=== PATIENT | male | born 1950 | race Caucasian/White ===

== ENCOUNTER 2025-05-20 13:53 | Outpatient (OUT) | payer MEDICARE, OTHER, SELFPAY ==
--- NOTE | 2025-05-20 15:43 | P.CN_ITS ---
Consult Note: HPI Data of Consult Patient: new to practice Consult date: 05/20/25 Requesting Physician: Suzanne Zamorano MD Primary Care Provider: BERNICE MICHELLE DO Family Provider: BERNICE MICHELLE DO Consult Narrative Reason for consult: low back, left leg pain Narrative: 74yom who presents for evaluation. longstanding history of low back, left leg pain. previously had lumbar fusion in 2022, initially did well, now worsening pain. engages in frequent weekly chiropractic therapy, with mild benefit. uses tylenol, gabapentin, but does not like taking meds. denies adverse med side effects. cc:: CC: Suzanne Zamorano MD Review of Systems ROS Status of ROS 10 or more systems reviewed and unremark able except as noted in history and below Exam Narrative Exam Narrative: Psych-alert and oriented x 3. Attentive and appropriate, constitutionally normal, displays normal mood and affect per situation. There are no obvious deficits in memory, reasoning, or intellect.? Skin-no obvious rashes, bruising, erythema noted to the patient's area of pain.? Extremities- extremities are warm with minimal edema and palpable pulses. Lumbar-tenderness to palpation noted in the lumbar spine and paraspinal musculature. Pain is elicited with flexion, extension, and lateral rotation of the lumbar spine. Range of motion is diminished with these motions. Facet loading maneuvers are positive.? Strength-noted to be unremarkable with the exception of decreased strength rated at 4 out of 5 in left quadriceps femoris, anterior tibialis. Sensory-no notable sensory deficits in the bilateral lower extremities to touch or pinprick in all dermatomal distributions with the exception to decreased sensation to the left L4, 5 dermatomal distribution Coordination remains intact.? Gait remains non-antalgic. Assessment and Plan Assessment and Plan (1) Lumbar stenosis with neurogenic claudication: (2) Lumbar postlaminectomy syndrome: Plan 74yom who presents for evaluation. failed conservative measures, as noted. given previous surgery and exam findings, would like to update lumbar mri without contrast. he is in agreement. meds reviewed, no changes. follow up after imaging complete.
== END 2025-05-20 13:54 | disposition home or self-care (01) ==
PROVIDERS: Family Provider Internal Medicine; PCP Internal Medicine; Visit Provider Anesthesiology
DX: M48.062 Spinal stenosis, lumbar region with neurogenic claudication (principal); M96.1 Postlaminectomy syndrome, not elsewhere classified
CPT/HCPCS: G0463

== ENCOUNTER 2025-05-29 12:27 | Outpatient (OUT) | payer MEDICARE, SELFPAY ==
--- NOTE | 2025-05-29 12:31 | MR_ITS ---
[address] [address] Patient Name: TIGRE PISANO MRN: [id number] date: 1950 Sex: M Assigned Patient Location: MRI Current Patient Location: MRI Accession/Order Number: [id number] Exam Date: 05/29/2025 12:50 Report Date: 05/29/2025 20:24 At the request of: YASSINE WHIPPLE MD Procedure: MR lumbar spine wo con MR lumbar spine wo con 05/29/2025 1:57 PM SIGNS AND SYMPTOMS: ^Failed Back, Post Laminectomy PROTOCOL: Multiplanar multisequence MR images of the lumbar spine without IV contrast COMPARISON: 07/18/2023 FINDINGS: The bones of the lumbar spine are in anatomic alignment. There is preservation of vertebral body heights there is posterior and intervertebral fusion at L4-5. There is mild disc height loss at L5-S1. There is mild disc height loss at L5-S1. There is Schmorl's information the inferior endplate of L2. The marrow signal is within normal limits. The conus terminates at the mid L1 vertebral body level. No epidural or paraspinous fluid collection is appreciated. There is aneurysmal dilatation of the infrarenal abdominal aorta just above the bifurcation measuring up to 3.1 cm in greatest transverse dimension. At T12-L1: There is a normal disc, central canal, and neural foramen. At L1-L2: There is a normal disc, central canal, and neural foramen. At L2-L3: There is a broad-based disc bulge. There is facet hypertrophy with ligamentum flavum thickening. There is mild spinal canal stenosis with mild to moderate bilateral neural foraminal narrowing. At L3-L4: There is a circumferential disc bulge with facet hypertrophy and ligamentum flavum thickening. There is mild spinal canal stenosis with mild left and moderate right neural foraminal narrowing. At L4-L5: There is posterior and intervertebral fusion. There is facet hypertrophy. There is no significant spinal canal narrowing. There is moderate left and mild right neural foraminal narrowing. At L5-S1: There is a circumferential disc bulge with endplate osteophyte formation and facet hypertrophy. There is moderate left and severe right neural foraminal narrowing with mass effect on the exiting right L5 nerve roots. There is mild spinal canal narrowing. MR/MR lumbar spine wo con IMPRESSION: At L5-S1: There is a circumferential disc bulge with endplate osteophyte formation and facet hypertrophy. There is moderate left and severe right neural foraminal narrowing with mass effect on the exiting right L5 nerve roots. There is mild spinal canal narrowing. Lesser degrees of degenerative changes are noted as above. There is posterior and intervertebral fusion at L4-5. Impression dictated by: Nino Morrissey M.D. 05/29/2025 8:24 PM Dictation Location: [place] [address] Electronically authenticated by: [id number] Y Date: 05/29/2025 20:24
== END 2025-05-29 12:28 | disposition home or self-care (01) ==
LOC: MRI 12:27
PROVIDERS: Family Provider Internal Medicine; PCP Internal Medicine; Visit Provider Anesthesiology
DX: M96.1 Postlaminectomy syndrome, not elsewhere classified (principal); M51.369 Other intervertebral disc degeneration, lumbar region without mention of lumbar back pain or lower extremity pain; M43.26 Fusion of spine, lumbar region
CPT/HCPCS: 72148

== ENCOUNTER 2025-06-05 08:54 | Outpatient (OUT) | payer MEDICARE, SELFPAY ==
--- OUTSIDE RECORDS SUMMARY | 2025-05-31 08:01 | XMS_ITS | Encounter Summary ---
Author Organization [employer] Address [id number] [address] [place] [address] Care Team Providers Care Casual Shoe Inspector Name Role Phone Katie Galdamez DO, Charles L Primary Care Provider Reason for Referral * Diagnostic Imaging (Emergency) - Pending Review Specialty Diagnoses / Procedures Referred By Contac t Referred To Contact Radiology Diagnoses Pulmonary nodule Procedures [place] [address] [place] [address] Phone: tel: fax: Referral ID Status Reason Start Date Expiration Date V isits Requested Visits Authorized [id number] Pending Review 12/04/2024 12/04/2025 1 1 Reason for Visit * Diagnostic Imaging (Emergency) - Pending Review Specialty Diagnoses / Procedures Referred By German ramirez Referred To Contact Radiology Diagnoses Pulmonary nodule Procedures CT chest with contrast Elton Wilson Jr., DO [address] [place] [address] Phone: tel: fax: Referral ID Status Reason Start Date Expiration Date V isits Requested Visits Authorized [id number] Pending Review 12/04/2024 12/04/2025 1 1 Encounter Details Date Type Department Care Team (Latest Contact Info) Description 05/31/2025 8:01 AM EDT - 05/31/2025 11:59 PM EDT Hospital Encounter [facility] - CT Imaging [address] [place] [address] Pulmonary nodule Discharge Disposition: Home Social History Tobacco Use Types Packs/Day Years Used Date Smoking Tobacco: Former Cigarettes 0.3 39 1 971 - 2010 Smokeless Tobacco: Never Alcohol Use Standard Drinks/Week Comments Yes 0 (1 standard drink = 0.6 oz pur e alcohol) 2 beers 2 times per week Housing Instability Answer Date Recorde d Are you worried or concerned that in the next two months you may not have stable housing that you own, rent or stay in as a part of a household? No 02/04/2023 Childcare Answer Date Recorded Childcare Unknown 03/07/2019 Employment Answer Date Recorded Employment Unknown 03/07/2019 Hunger Screening Answer Date Recorded Within the past 12 months we worried whether our food would run out before we got money to buy more. Never True 03/07/2025 Within the past 12 months th e food we bought just didn't last and we didn't have money to get more. Never True 03/07/2025 Purpose - Life Answer Date Recorded Purpose and direction in life Unknown Sex and Gender Information Value Date Recorded Sex Assigned at Not on file Legal Sex Male 11:39 AM EDT Gender Identity Not on file Sexual Orientation Not on file documented as of this encounter Medications at Time of Discharge acetaminophen (TYLENOL EXTRA STRENGTH) 500 mg tablet Take 2 tablets (1,000 mg total) by mouth every 6 (six) hours. 30 tablet 3 aspirin 81 mg Take 1 tablet (81 mg total) by mouth in the morning. 3 atorvastatin (LIPITOR) 40 mg tabletIndications:Pure hypercholesterolemia Take 1 tablet (40 mg total) by mouth daily. 1 tablet 8 cholecalciferol, vitamin D3, 2,000 units tablet Take 1 tablet (2,000 Units total) by mouth in the morning. cyanocobalamin (vitamin B-12) 1000 MCG tablet Take 1 tablet (1,000 mcg total) by mouth in the morning. 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 90 tablet 1 5 magnesium 200 mg tablet Take by mouth in the morning. metoprolol tartrate (LOPRESSOR) 25 mg tablet Take 1 tablet (25 mg total) by mouth in the morning and 1 tablet (25 mg total) before bedtime. Last dose today 04/08/2021 . 180 tablet 3 2 MULTIVIT-MIN/FA/LYCOPEN/L UTEIN (CENTRUM SILVER MEN ORAL) in the evening. mv-mn/lutein/zeax/bilber/ hb277 (MACULAR HEALTH FORMULA ORAL) Take by mouth in the morning. NON FORMULARY Med Name: prostate health tab daily, and Juliocesar BID TURMERIC ORAL Take by mouth in the morning. vitamins A,C,P-sdvm-lmufym (IVITE PROTECT) 7,160 unit- 113 mg-100 unit tablet Take 1 tablet by mouth in the morning and 1 tablet before bedtime. Eye vitamins. documented as of this encounter Plan of Treatment Upcoming Encounters Date Type Department Care Team (Late st Contact Info) Description 07/05/2025 1:30 PM EDT Appointment [facility] [address] [facility] [place] [phone] Jessi Martinez, DO [address] [place] [address] 07/05/2025 2:15 PM EDT Appointment [facility] [address] [place] [address] Jessi Martinez, DO [address] [place] [address] 07/05/2025 3:15 PM EDT Appointment [facility] [address] [place] [address] Jessi Martinez, DO [address] [place] [address] 07/05/2025 3:45 PM EDT Appointment [facility] - [facility]ascular [address] [facility] [place] [phone] Jessi Martinez, DO [address] [place] [address] 07/15/2025 10:15 AM EDT Office Visit [facility] [address] [place] [address] Jessi Martinez, DO [address] [place] [address] documented as of this encounter Goals Goal Patient Goal Type Associated Problems Recent Progress Patient-Stated? Author <enter goal here> General Yes Edgardo Wright, RN Note: Evaluation of progress towards goal: Patient will discharge to inpatient rehab. - Edgardo Wright RN 02/03/23 1:07 PM documented as of this encounter Procedures Procedure Name Priority Date/Time Associated Diagnosis Comments CT CHEST W CONT Routine 05/31/2025 8:28 AM EDT Pulmonary nodule documented in this encounter Results * CT chest with contrast (05/31/2025 8:28 AM EDT) Anatomical Region Laterality Modality Body, Lung, Chest, Body Covera N/A C omputed Tomography 06/04/2025 9:18 AM EDT Narrative 06/04/2025 9:41 AM EDT History: Pulmonary nodule Exam/Technique: CT images of chest were obtained following intravenous contrast injection. CT does automated exposure control was utilized. All CT scans at this facility use dose modulation, iterative reconstruction, and/or weight based dosing when appropriate to reduce radiation dose to as low as reasonably achievable. Comparison: CT chest 11/28/2024 Findings: Neck base exam is grossly unremarkable. There are cardiac surgical changes with severe northway coronary artery calcifications. There is no significant cardiomegaly or pericardial effusion. There is no pathological lymphadenopathy by size criteria. There is interval improvement with near complete resolution of the multiple bilateral nodular opacities. The opacity along the right minor fissure demonstrates interval decrease in thickness and in density. It currently measures 2.4 mm in thickness compared to prior measurements of 4.7 mm. This is likely sequelae of atelectasis. Pulmonary nodule : 2.5 mm left upper lobe nodule axial image #55 compared to prior measurement of 6 mm. 3 mm left lower lobe nodule axial image #62 compared to prior measurements of 7 mm. 4 mm right lower lobe central nodular opacity, axial image #88 compared to prior measurement of 9 mm. 4 mm left lower lobe pulmonary nodule axial image #87 compared to prior 6 mm. 8 mm right lower lobe cavitary nodule axial image #95 is essentially stable. There is interval development of new left lower lobe 8 mm pulmonary nodule axial image #100 and coronal image #89. There are groundglass opacities throughout both lungs. Those could be sequelae of inflammatory or infectious process. There are coarse anterior bridging osteophytes throughout the entire dorsal spine likely discharge with no gross acute osseous injury. IMPRESSION: Most of the bilateral pulmonary nodules demonstrate significant decrease in size and density. However, there is new spiculated nodular opacity at the left lower lobe that measures 8 mm. This could represent subsegmental atelectasis. Short-term follow- up in 3 months is advised. There are scattered groundglass opacities throughout both lungs possibly due to subsegmental atelectasis versus inflammatory or infectious etiology. Finalized by Rosalina Barillas MD on 06/04/2025 9:41 AM Procedure Note Rosalina Barillas MD - 06/04/2025 History: Pulmonary nodule Exam/Technique: CT images of chest were obtained following intravenous contrast injection.CT does automated exposure control was utilized. All CT scans at [facility] use dose modulation, iterative reconstruction, and/or weightbased dosing when appropriate to reduce radiation dose to as low asreasonably achievable. Comparison: CT chest 11/28/2024 Findings: Neck base exam is grossly unremarkable. There are cardiac surgical changes with severe northway coronary arterycalcifications. There is no significant cardiomegaly or pericardialeffusion. There is no pathological lymphadenopathy by size criteria. There is interval improvement with near complete resolution of themultiple bilateral nodular opacities. The opacity along the right minor fissure demonstrates interval decreasein thickness and in density. It currently measures 2.4 mm in thicknesscompared to prior measurements of 4.7 mm. This is likely sequelae ofatelectasis. Pulmonary nodule : 2.5 mm left upper lobe nodule axial image #55 compared to priormeasurement of 6 mm. 3 mm left lower lobe nodule axial image #62 compared to prior measurementsof 7 mm. 4 mm right lower lobe central nodular opacity, axial image #88 compared toprior measurement of 9 mm. 4 mm left lower lobe pulmonary nodule axial image #87 compared to prior 6mm. 8 mm right lower lobe cavitary nodule axial image #95 is essentiallystable. There is interval development of new left lower lobe 8 mm pulmonary noduleaxial image #100 and coronal image #89. There are groundglass opacities throughout both lungs. Those could besequelae of inflammatory or infectious process. There are coarse anterior bridging osteophytes throughout the entiredorsal spine likely discharge with no gross acute osseous injury. IMPRESSION: Most of the bilateral pulmonary nodules demonstrate significant decreasein size and density. However, there is new spiculated nodular opacity atthe left lower lobe that measures 8 mm. This could represent subsegmentalatelectasis. Short-term follow- up in 3 months is advised. There are scattered groundglass opacities throughout both lungs possiblydue to subsegmental atelectasis versus inflammatory or infectiousetiology. Finalized by Rosalina Barillas MD on 06/04/2025 9:41 AM Elton Wilson Jr., DO IM CT ORDERABLES Final Result documented in this encounter Visit Diagnoses Diagnosis Pulmonary nodule Other diseases of lung, not elsewhere classified documented in this encounter Administered Medications Inactive Administered Medications - up to 3 most recent administrations Medication Order MAR Action Action Date Dose Rate Site iohexoL (OMNIPAQUE) 300 mg iodine/mL 100 mL 100 mL, intravenous, Once in imaging, contrast, Starting on Tue05/31/25 at 0804, For 1 dose, VESICANT (RED) Given 05/31/2025 8:30 AM EDT 70 mL sodium chloride 0.9 % flush 10 mL 10 mL, intravenous, As needed, line care, Starting on Tue05/31/25 at 0804 Given 05/31/2025 8:29 AM EDT 10 mL sodium chloride 0.9 % radiology injection 80 mL, intravenous, Once in imaging, pre/post contrast, Starting on Tue05/31/25 at 0804, For 1 dose Given 05/31/2025 8:30 AM EDT 80 mL documented in this encounter Care Teams Casual Shoe Inspector Relationship Specialty Start Date End Date Elton Wilson Jr., [address] [place] [address] PCP - General Internal Medicine 09/26/17 documented as of this encounter
--- OUTSIDE RECORDS SUMMARY | 2025-06-05 08:56 | XMS_ITS | Encounter Summary ---
Demographics Address [address] [place] [address] Mobile Phone Email Address Preferred Language Croatian Marital Status Significant Other Congregation Affiliation Unknown Race White Ethnic Group Not or Lati no Author Organization [employer] Address [facility] [id number] [address] [place] [address] Care Team Providers Care Oscillograph Technician Name Role Phone Katie Galdamez DO, Charles L Primary Care Provider Encounter Details Date Type Department Care Team (Late st Contact Info) Description 03/23[facility]2021 [facility] [address] [place] [phone] Dora Garcia RN Social History Tobacco Use Types Packs/Day Years Used Date Smoking Tobacco: Former Smokeless Tobacco: Never Alcohol Use Standard Drinks/Week Comments Yes 0 (1 standard drink = 0.6 oz pur e alcohol) Childcare Answer Date Recorded Childcare Unknown 03/07/2019 Employment Answer Date Recorded Employment Unknown 03/07/2019 Purpose - Life Answer Date Recorded Purpose and direction in life Unknown Sex and Gender Information Value Date Recorded Sex Assigned at Not on file Legal Sex Male 11:39 AM EDT Gender Identity Not on file Sexual Orientation Not on file COVID-19 Exposure Response Date Recorded In the last month, have you been in contact with someone who was confirmed or suspected to have Coronavirus / COVID-19? No / Unsure 03/26/2021 12:38 PM EDT documented as of this encounter Miscellaneous Notes * Telephone Encounter - Dora Garcia RN - 03/23/2021 11:16 AM EDT Spoke with pt-eager to start cardiac rehab-Maryanne in rehab notified- documented in this encounter Plan of Treatment Upcoming Encounters Date Type Department Care Team (Late st Contact Info) Description 07/05/2025 1:30 PM EDT Appointment [facility] [address] [place] [address] Jessi Martinez, DO [address] [facility] [address] [place] [address] 07/05/2025 2:15 PM EDT Appointment [facility] [address] [place] [address] Jessi Martinez, DO [address] [facility] [address] [place] [address] 07/05/2025 3:15 PM EDT Appointment [facility] [address] [place] [facility] [place] [place] [address] Jessi Martinez, DO [address] [facility] [address] [place] [address] 07/05/2025 3:45 PM EDT Appointment [facility] [address] [place] [facility] [place] [address] Jessi Martinez, DO [address] [facility] [address] [place] [address] 07/15/2025 10:15 AM EDT Office Visit [facility] [address] [facility] [address] Jessi Martinez, DO [address] [facility] [address] [place] [address] documented as of this encounter Visit Diagnoses Not on filedocumented in this encounter Care Teams Oscillograph Technician Relationship Specialty Start Date End Date Elton Wilson Jr., [facility] [place] [address] PCP - General Internal Medicine 09/26/17 documented as of this encounter
--- OUTSIDE RECORDS SUMMARY | 2025-06-05 08:56 | XMS_ITS | Clinical Summary ---
Demographics Address [address] [place] [address] Mobile Phone Email Address Preferred Language Croatian Marital Status Significant Other Yarsani Affiliation Unknown Race White Ethnic Group Not or Lati no Author Organization [employer] tem Address [id number] [address] [place] [address] Care Team Providers Care Health Education Aide Name Role Phone Katie Galdamez DO, Charles L Primary Care Provider Allergies Active Allergy Reactions Criticality Noted Date Comments Ciprofloxacin 07/30/2024 Fluoroquinolones antibiotics associated with potential increased risk for aortic aneurysm/dissection progression. Patient with known history of AAA should attempt to avoid fluoroquinolones if possible. For this reason FQ listed under patient allergies. However, this is not a true allergy or contraindication and FQ can be used if risk of infection and/or need for FQ use felt to be greater than potential risk of aneurysmal progression. 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 Active vitamins A,C,H-vdjj-zgpdwj (IVITE PROTECT) 7,160 unit- 113 mg-100 unit tablet Take 1 tablet by mouth in the morning and 1 tablet before bedtime. Eye vitamins. Active atorvastatin (LIPITOR) 40 mg tabletIndications:Pure hypercholesterolemia Take 1 tablet (40 mg total) by mouth daily. 1 tablet 018 Active Additional Information Patient taking differently: 20 mgoral Daily, Morning, Reported on 03/07/2025 cholecalciferol, vitamin D3, 2,000 units tablet Take 1 tablet (2,000 Units total) by mouth in the morning. Active metoprolol tartrate (LOPRESSOR) 25 mg tablet Take 1 tablet (25 mg total) by mouth in the morning and 1 tablet (25 mg total) before bedtime. Last dose today 04/08/2021 . 180 tablet 3 022 Active Additional Information Patient taking differently: 12.5 mgoral 2 times daily, Morning, Bedtime, Last dose today 04/08/2021 , Reported on 03/07/2025 NON FORMULARY Med Name: prostate health tab daily, and Juliocesar BID Active aspirin 81 mg Take 1 tablet (81 mg total) by mouth in the morning. 023 Active acetaminophen (TYLENOL EXTRA STRENGTH) 500 mg tablet Take 2 tablets (1,000 mg total) by mouth every 6 (six) hours. 30 tablet 023 Active TURMERIC ORAL Take by mouth in the morning. Active cyanocobalamin (vitamin B-12) 1000 MCG tablet Take 1 tablet (1,000 mcg total) by mouth in the morning. Active mv-mn/lutein/zeax/bilbe r/hb277 (MACULAR HEALTH FORMULA ORAL) Take by mouth in the morning. Active magnesium 200 mg tablet Take by mouth in the morning. Active ezetimibe (ZETIA) 10 mg tabletIndications:Hyper triglyceridemia,Pure hypercholesterolemia,Hi story of coronary artery bypass graft x 3 Take 1 tablet (10 mg total) by mouth in the morning. 90 tablet 1 025 Active Active Problems Problem Noted Date Diagnosed Date Lumbar stenosis 02/02/2023 History of coronary artery bypass graft x 3 01/2023 Essential hypertension 01/28/2023 History of hyperlipidemia 01/28/2023 Abdominal aortic aneurysm (AAA) without rupture 06/04/2022 Overview (06/04/2022): Added automatically from request for surgery [id number] Lumbosacral spondylosis without myelopathy 04/29 Overview (04/29/2022): Added automatically from request for surgery [id number] Spinal stenosis of lumbar re gion with neurogenic claudication 03/30/2022 Overview (03/30/2022): Added automatically from request for surgery [id number] Pericardial effusion 03/26/2021 Paroxysmal atrial fibrillation 03/04/2021 Overview (08/07/2021): Postop CABG Presence of aortocoronary bypass graft Hypertensive heart disease without heart failure 02/27/2021 Personal history of sudden cardiac arrest 2020 Unstable angina 02/22/2021 Pulseless electrical activity 02/22/2021 Overview (02/25/2021): Added automatically from request for surgery [id number] Pure hypercholesterolemia 05/23/2018 Coronary artery disease invo lving nez perce coronary artery of nez perce heart 10/04/2016 Presence of coronary angioplasty implant and gra ft 09/26/1989 Cough Resolved Problems Problem Noted Date Diagnosed Date Resolved Date terminal system operator (current) use of anticoagulants 03/04/2021 07/16/2021 Hypertension 05/30/2019 06/30/2020 Combined hyperlipidemia 07/10/201504/27 Encounters Date Type Department Care Team Description 05/31/2025 8:01 AM EDT - 05/31/2025 11:59 PM EDT Hospital Encounter [facility] [address] [place] [address] Pulmonary nodule Discharge Disposition: Home 05/31/2025 Travel 05/28/2025 Travel 05/24/2025 Travel 05/13/2025 Travel 04/30/2025 Refill [facility] [address] [place] [id number] Winter Cardenas, GIOVANNI Med Refill 03/27/2025 Travel 03/07/2025 12:30 PM EDT Office Visit [facility] [address] [place] [phone] Jack Wilkerson MD History of coronary artery bypass graft x 3 (Primary Dx); Abnormal electrocardiogram (ECG) (EKG) 03/06/2025 Telephone [facility] [address] [place] [address] Sandra Steinberg, ESTEVAN 03/05/2025 Travel from Last 3 Months Immunizations Immunization Administration Dates Next Due Immune Globulin, Intramuscular 06/21/2020,2019 Influenza Vaccine, Quadrivalent, Adjuvanted 05/28 Influenza, Injectable, Mdck, Preservative Free, Quad 07/25/2017 Influenza, Injectable, quadrivalent (PF) 019,07/10/2018 Tdap 05/04/2015 Family History Medical History Relation Name Comments Heart disease Brother 1 No Known Problems Brother 2 Heart disease Father No Known Problems Mother No Known Problems Sister 1 No Known Problems Sister 2 No Known Problems Sister 3 No Known Problems Sister 5 Anesthesia problems Neg Hx Bleeding Disorder Neg Hx Clotting disorder Neg Hx Colon cancer Neg Hx Diabetes Neg Hx Prostate cancer Neg Hx Stroke Neg Hx Relation Name Status Comments Brother 1 Alive Brother 2 Alive Father Maternal Grandfather Maternal Grandmother Mother Paternal Grandfather Paternal Grandmother Sister 1 Sister 2 Alive Sister 3 Alive Sister 4 Alive Sister 5 Alive Social History Tobacco Use Types Packs/Day Years Used Date Smoking Tobacco: Former Cigarettes 0.3 39 1 971 - 2010 Smokeless Tobacco: Never Tobacco Cessation:Counseling Given: Not Answered Alcohol Use Standard Drinks/Week Comments Yes 0 [...] on file Sexual Orientation Not on file Last Filed Vital Signs Vital Sign Reading Time Taken Comments Blood Pressure 124/80 03/07/2025 12:15 PM EDT Pulse 72 03/07/2025 12:15 PM EDT Temperature 36.4 C (97.5 F) 02/04/2023 7:39 AM EDT Respiratory Rate 18 02/04/2023 11:37 AM EDT Oxygen Saturation 98% 03/07/2025 12:15 PM EDT Inhaled Oxygen Concentration - - Weight 101.2 kg (223 lb) 03/07/2025 12:15 PM EDT Height 188 cm (6' 2 ) 03/07/2025 12:15 PM EDT Body Mass Index 28.63 03/07/2025 12:15 PM EDT Plan of Treatment Upcoming Encounters Date Type Department Care Team (Late st Contact Info) Description 07/05/2025 1:30 PM EDT Appointment [facility] [address] [place] [address] Jessi Martinez, DO [address] [facility] [employer] [address] [place] [address] 07/05/2025 2:15 PM EDT Appointment [facility] [address] [place] [address] Jessi Martinez, DO [address] [facility] [address] [place] [address] 07/05/2025 3:15 PM EDT Appointment [facility] [address] [place] [address] Jessi Martinez, DO [address] [facility] [address] [place] [address] 07/05/2025 3:45 PM EDT Appointment [facility] [address] [place] [address] Jessi Martinez, DO [address] [facility] [address] [place] [address] 07/15/2025 10:15 AM EDT Office Visit [facility] [place] [address] Jessi Martinez, DO [address] [facility] [address] [place] [address] Health Maintenance Due Date Last Done Comments Statin Use: Cardiovascular 1950 Depression Screening 1962 Adult BMI Follow Up Plan 1968 Zoster (Shingles) Vaccine (1 of 2) 2000 Fall Risk Screening 12/28/2015 DTaP,Tdap and Td Vaccines (2 - Td or Tdap) 05/04/2025 05/04/2015 COVID-19 Vaccine (3 - 2024-2 6 season) 2025 07/04/2023, 07/01/2021 Influenza Vaccine 05/27/2025 09/14/2024, , 08/31/2022, Additional history exists Adult BMI Screening 03/07/2026 03/07/2025 Tobacco Screening 05/31/2026 05/31/2025 Abdominal Aortic Aneurysm (A AA) Screen Completed 09/17/2024, 07/19/2024, 07/19/2024, Additional history exists Goals Goal Patient Goal Type Associated Problems Recent Progress Patient-Stated? Author <enter goal here> General Yes Edgardo Wright, GIOVANNI Note: Evaluation of progress towards goal: Patient will discharge to inpatient rehab. - Edgardo Wright RN 02/03/23 1:07 PM Medical Devices Implanted Type Area Fruit Press Operator Device Identifier Shelf Expiration Date Model / Serial / Lot Graft Evas 12cm 12mm 10-11mm Xcldr Cntrlt Lg Eptfe [facility] Rpl [id number] - [id number] - [id number] Implanted:Qty: 1 on 06/14/2022 by Benoit Almendarez MD at [facility] Graft Left: Arterial [place] 02/02/2025 [id number] / [id number] / Description:LEFT ILIAC ARTER Y Graft Evas 9.5cm 18mm 14.5-16.5mm [place] Xcldr Cntrlt Lg Eptfe - [id number] - [id number] Implanted:Qty: 1 on 06/14/2022 by Benoit Almendarez MD at [facility] Graft Right: Arterial [place] 11/16/2024 [id number] / [id number] / Description:RIGHT ILIAC UMESH RY Spacer Implanted:Qty: 1 on 02/02/2023 by Andrew Bravo MD at [facility] Other Implant N/A: Spine Lumbar [employer] [facility] 09/16/2028 [id number] / / [id number] Spacer Implanted:Qty: 1 on 02/02/2023 by Andrew Bravo MD at [facility] Other Implant N/A: Spine Lumbar [employer] [facility] 09/16/2028 [id number] / / [id number] Reggie Spnl Cd Hzn Solera 45mm 4.75mm Preb Cocrmo Crv Ns Solera - [id number] Implanted:Qty: 2 on 02/02/2023 by Anderw Bravo MD at [facility] Reggie N/A: Spine Lumbar use MDTR SPIN [id number] / / Screw Bn 50mm 7.5mm Ma Lp 2 Ld Clr Cd Spne Ti Cocr Cd Hzn - [id number] Implanted:Qty: 4 on 02/02/2023 by Andrew Bravo MD at [facility] Screw N/A: Spine Lumbar use MDTR SPIN [id number] / / Screw Set Ti Spne Brk Off Cd Hzn Ns 4.75 Mm Reggie - [id number] Implanted:Qty: 4 on 02/02/2023 by Andrew Bravo MD at [facility] Screw N/A: Spine Lumbar use MDTR SPIN [id number] / / Chest Wires [place] Excluder Aaa Endoprothesis Implanted:Qty: 1 on 06/14/2022 by Benoit Almendarez MD at [facility] N/A: Aorta [place] 03/06/2025 [id number] / [id number] / Description:AORTA Procedures Procedure Name Priority Date/Time Associated Diagnosis Comments CT CHEST W CONT Routine 05/31/2025 8:28 AM EDT Pulmonary nodule POCT EKG Routine 03/07/2025 History of coronary artery bypass graft x 3 from Last 3 Months Results * CT chest with contrast (05/31/2025 [...] There are cardiac surgical changes with severe nez perce coronary artery calcifications. There is no significant [...] control was utilized. All CT scans at [facility] use dose modulation, iterative reconstruction, and/or weightbased dosing when appropriate to reduce radiation dose to as low asreasonably achievable. Comparison: CT chest 11/28/2024 Findings: Neck base exam is grossly unremarkable. There are cardiac surgical changes with severe nez perce coronary arterycalcifications. There is no significant cardiomegaly [...] Rosalina Barillas MD on 06/04/2025 9:41 AM us Elton Wilsno Jr., DO IMG CT ORDERABLES Final Result * POCT EKG (03/07/2025) 03/07/2025 us Jack Wilkerson MD ECG ORDERABLES Final Result MANUALLY TRANSCRIBED RESULTS from Last 3 Months Insurance * Guarantor: Saurabh Jerome Account Type Relation to Patient Date of Phone Billing Address Personal/Family Self 1950 [address] [place] [address] [facility] OPTUM Advance Directives * Full Code (Latest Code Status on File) Date Activated Date Inactivated Comments 02/02/2023 6:19 PM 02/04/2023 3:32 PM * Full Code Date Activated Date Inactivated Comments 02/22/2021 12:35 PM 03/04/2021 7:07 PM Care Teams Health Education Aide Relationship Specialty Start Date End Date Elton Wilson Jr., [address] [place] [address] PCP - General Internal Medicine 09/26/17
--- OUTSIDE RECORDS SUMMARY | 2025-06-05 08:56 | XMS_ITS | Encounter Summary ---
Demographics Address [address] [place] [address] Mobile Phone Email Address Preferred Language Ukrainian Marital Status Significant Other Gnosticist Affiliation Unknown Race White Ethnic Group Not or Lati no Author Organization [employer] tem Address [id number] [address] [place] [address] Care Team Providers Care Shake Out Worker Name Role Phone Katie Galdamez DO, Charles L Primary Care Provider Encounter Details Date Type Department Care Team (Latest Contact Info) Description 05/28/2025 Travel Social History Tobacco Use Types Packs/Day Years [...] on file documented as of this encounter Plan of Treatment Upcoming Encounters Date Type Department Care Team (Late st Contact Info) Description 07/05/2025 1:30 PM EDT Appointment [facility] [address] [facility] [address] Jessi Martinez, DO [address] [facility] [address] [place] [address] 07/05/2025 2:15 PM EDT Appointment [facility] [address] [place] [address] Jessi Martinez, DO [address] [facility] [address] [place] [address] 07/05/2025 3:15 PM EDT Appointment [facility] [address] [place] [address] Jessi Martinez, DO [address] [facility] [address] [place] [address] 07/05/2025 3:45 PM EDT Appointment [facility] [address] [place] [address] Jessi Martinez, DO [address] [facility] [address] [place] [address] 07/15/2025 10:15 AM EDT Office Visit [facility] [address] [facility] [place] [address] Jessi Martinez, DO [address] [facility] [address] [place] [address] documented as of this encounter Goals Goal Patient Goal Type Associated Problems Recent Progress Patient-Stated? Author <enter goal here> General Yes Edgardo Wright, RN Note: Evaluation of progress towards goal: Patient will discharge to inpatient rehab. - Edgardo Wright RN 02/03/23 1:07 PM documented as of this encounter Visit Diagnoses Not on filedocumented in this encounter Care Teams Shake Out Worker Relationship Specialty Start Date End Date Elton Wilson Jr., DO [address] [place] [address] PCP - General Internal Medicine 09/26/17 documented as of this encounter
--- OUTSIDE RECORDS SUMMARY | 2025-06-05 08:56 | XMS_ITS | Encounter Summary ---
Demographics Address [address] [place] [address] Mobile Phone Email Address Preferred Language Estonian Marital Status Significant Other Spiritism Affiliation Unknown Race White Ethnic Group Not or Lati no Author Organization [employer] tem Address [id number] [address] [place] [address] Care Team Providers Care Plasterer Helper Name Role Phone Katie Galdamez DO, Charles L Primary Care Provider Encounter Details Date Type Department Care Team (Latest Contact Info) Description 05/31/2025 Travel Social History Tobacco Use Types Packs/Day [...] Info) Description 07/05/2025 1:30 PM EDT Appointment [facility] [address] [place] [address] Jessi Martinez, DO [address] [facility] [address] [place] [address] 07/05/2025 2:15 PM EDT Appointment [facility] [address] [place] [address] Jessi Martinez, DO [address] [facility] [address] [place] [address] 07/05/2025 3:15 PM EDT Appointment [facility] [address] [place] [address] Jessi Martinez, DO [address] [facility] [address] [place] [address] 07/05/2025 3:45 PM EDT Appointment [facility] [address] [place] [address] Jessi Martinez, DO [address] [facility] [address] [place] [address] 07/15/2025 10:15 AM EDT Office Visit [facility] [address] [place] [address] Jessi Martinez, DO [address] [facility] [address] [place] [address] documented as of this encounter Goals Goal Patient Goal Type Associated Problems Recent Progress Patient-Stated? Author <enter goal here> General Yes Edgardo Wright, RN Note: Evaluation of progress towards goal: Patient will discharge to inpatient rehab. - Edgardo Wright RN 02/03/23 1:07 PM documented as of this encounter Visit Diagnoses Not on filedocumented in this encounter Care Teams Plasterer Helper Relationship Specialty Start Date End Date Elton Wilson Jr., DO [address] [place] [address] PCP - General Internal Medicine 09/26/17 documented as of this encounter
--- OUTSIDE RECORDS SUMMARY | 2025-06-05 08:56 | XMS_ITS | Encounter Summary ---
Demographics Address [address] [place] [address] Mobile Phone Email Address Preferred Language Nepalese Marital Status Significant Other Confucianist Affiliation Unknown Race White Ethnic Group Not or Lati no Author Organization [facility] [employer] tem Address [id number] [address] [place] [address] Care Team Providers Care Boom Stick Man Name Role Phone Katie Galdamez DO, Charles L Primary Care Provider Encounter Details Date Type Department Care Team (Late st Contact Info) Description 11/07/2023 Orders Only [facility] [address] [place] [address] Sandra Hensley MA Essential hypertension Social History Tobacco Use Types Packs/Day Years [...] got money to buy more. Never True 07/04/2023 Within the past 12 months th e food we bought just didn't last and we didn't have money to get more. Never True 07/04/2023 Purpose - Life Answer Date Recorded Purpose [...] Info) Description 07/05/2025 1:30 PM EDT Appointment [facility] [address] [place] [address] Jessi Martinez, DO [address] [employer] [address] [place] [address] 07/05/2025 2:15 PM EDT Appointment [facility] [address] [place] [address] Jessi Martinez, DO [address] [facility] [address] [place] [address] 07/05/2025 3:15 PM EDT Appointment [facility] [address] [place] [address] Jessi Martinez, DO [address] [facility] [address] [place] [address] 07/05/2025 3:45 PM EDT Appointment [facility] [address] [place] [address] Jessi Martinez, DO [address] [facility] [address] [place] [address] 07/15/2025 10:15 AM EDT Office Visit [facility] [place] [address] Jessi Martinez, DO [address] [facility] [address] [place] [address] documented as of this encounter Goals Goal Patient Goal Type Associated Problems Recent Progress Patient-Stated? Author <enter goal here> General Yes Edgardo Wright, RN Note: Evaluation of progress towards goal: Patient will discharge to inpatient rehab. - Edgardo Wright RN 02/03/23 1:07 PM documented as of this encounter Procedures Procedure Name Priority Date/Time Associated Diagnosis Comments LIPID PROFILE Routine 10/18/2023 Essential hypertension documented in this encounter Results * Lipid panel (10/18/2023) External Cholesterol 171 SUNQUEST External Hdl Cholesterol 68 SUNQUEST External Ldl (Calc) 83 SUNQUEST External Triglycerides 100 SUNQUEST 10/18/2023 us Iron Arroyo MD LAB BLOOD ORDERABLES Final Re sult SUNQUEST documented in this encounter Visit Diagnoses Diagnosis Essential hypertension Unspecified essential hypertension documented in this encounter Care Teams Boom Stick Man Relationship Specialty Start Date End Date Elton Wilson Jr., [address] [place] [address] PCP - General Internal Medicine 09/26/17 documented as of this encounter
--- OUTSIDE RECORDS SUMMARY | 2025-06-05 08:57 | XMS_ITS | Encounter Summary ---
Demographics Address [address] [place] [address] Mobile Phone Email Address Preferred Language Guatemalan Marital Status Significant Other Orthodox Affiliation Unknown Race White Ethnic Group Not or Lati no Author Organization [employer] tem Address [id number] [address] [place] [address] Care Team Providers Care Weigher Alloy Name Role Phone Katie Galdamez DO, Charles L Primary Care Provider Encounter Details Date Type Department Care Team (Latest Contact Info) Description 05/24/2025 Travel Social History Tobacco Use Types Packs/Day [...] Info) Description 07/05/2025 1:30 PM EDT Appointment [facility] [address] [facility] [address] Jessi Martinez, DO [address] [facility] [address] [place] [address] 07/05/2025 2:15 PM EDT Appointment [facility] [address] [facility] [place] [address] Jessi Martinez, DO [address] [facility] [address] [place] [address] 07/05/2025 3:15 PM EDT Appointment [facility] [address] [facility] [place] [address] Jessi Martinez, DO [address] [facility] [address] [place] [address] 07/05/2025 3:45 PM EDT Appointment [facility] [address] [facility] [place] [address] Jessi Martinez, DO [address] [facility] [address] [place] [address] 07/15/2025 10:15 AM EDT Office Visit [facility] [address] [place] [address] Jessi Martinez, DO [address] [facility] [address] [place] [address] documented as of this encounter Goals Goal Patient Goal Type Associated Problems Recent Progress Patient-Stated? Author <enter goal here> General Yes Edgardo Wright, RN Note: Evaluation of progress towards goal: Patient will discharge to inpatient rehab. - Edgardo Wright RN 02/03/23 1:07 PM documented as of this encounter Visit Diagnoses Not on filedocumented in this encounter Care Teams Weigher Alloy Relationship Specialty Start Date End Date Elton Wilson Jr., DO [address] [place] [address] PCP - General Internal Medicine 09/26/17 documented as of this encounter
--- OUTSIDE RECORDS SUMMARY | 2025-06-05 08:57 | XMS_ITS | Encounter Summary ---
Demographics Address [address] [place] [address] Mobile Phone Email Address Preferred Language Botswanan Marital Status Significant Other Taoist Affiliation Unknown Race White Ethnic Group Not or Lati no Author Organization [facility] Sys tem Address [facility] [id number] [address] [facility] [place] [address] Care Team Providers Care Welder Railcar Mechanic Name Role Phone Katie Galdamez DO, Charles L Primary Care Provider Reason for Visit * Reason Onset Date Comments Status Post Cath 02/26/2021 Encounter Details Date Type Department Care Team (Late st Contact Info) Description 02/26/2021 Telephone [facility] [address] [address] Melanie Hammond MD [address] [address] Status Post Cath Social History Tobacco Use Types Packs/Day Years Used Date Smoking Tobacco: Former Smokeless Tobacco: Never Alcohol Use Standard Drinks/Week Comments No 0 (1 standard drink = 0.6 oz [...] have Coronavirus / COVID-19? No / Unsure 02/27/2021 11:46 AM EDT documented as of this encounter Miscellaneous Notes * Telephone Encounter - Shira Lujan - 02/26/2021 11:31 AM EDT Per message from 02/25/2021 procedure list: Pt had cath w/ MAS @ [facility] where pt is currently admitted. Will need f/u in office 1-2wks after d/c //keb * Telephone Encounter - Alisha Winter - 02/26/2021 11:31 AM EDT PT STILL ADMITTED * Telephone Encounter - Alisha Winter - 02/26/2021 11:31 AM EDT Still admitted * Telephone Encounter - Alisha Winter - 02/26/2021 11:31 AM EDT Still admitted * Telephone Encounter - Alisha Winter - 02/26/2021 11:31 AM EDT STILL ADMITTED documented in this encounter Plan of Treatment Upcoming Encounters Date Type Department Care Team (Late st Contact Info) Description 07/05/2025 1:30 PM EDT Appointment [facility] [address] [place] [address] [place] [address] [place] [address] [place] [address] 07/05/2025 2:15 PM EDT Appointment [facility] [address] [place] [address] Jessi Martinez, DO [address] [facility] [address] [place] [address] 07/05/2025 3:15 PM EDT Appointment [facility] - [facility] [address] [place] [address] Jessi Martinez, DO [address] [facility] [address] [place] [address] 07/05/2025 3:45 PM EDT Appointment [facility] [address] [place] [address] Jessi Martinez, DO [address] [facility] [address] [place] [address] 07/15/2025 10:15 AM EDT Office Visit [facility] [address] [place] [address] Jessi Martinez, DO [address] [facility] [address] [place] [address] documented as of this encounter Visit Diagnoses Not on filedocumented in this encounter Care Teams Welder Railcar Mechanic Relationship Specialty Start Date End Date Elton Wilson Jr., DO [address] [place] [address] [phone] PCP - General Internal Medicine 09/26/17 documented as of this encounter
--- OUTSIDE RECORDS SUMMARY | 2025-06-05 08:57 | XMS_ITS | Encounter Summary ---
Demographics Address [address] [place] [address] Mobile Phone Email Address Preferred Language Turkish Marital Status Significant Other Baptist Affiliation Unknown Race White Ethnic Group Not or Lati no Author Organization [facility] [employer] Sys tem Address [id number] [address] [facility] [place] [address] Care Team Providers Care Lumber Tallier Name Role Phone Katie Galdamez DO, Charles L Primary Care Provider Encounter Details Date Type Department Care Team (Late st Contact Info) Description 09/05/2024 Telephone [facility] [address] [place] [address] Marli Burns LPN Social History Tobacco Use Types Packs/Day Years [...] on file documented as of this encounter Miscellaneous Notes * Telephone Encounter - Laila Recinos - 09/05/2024 8:35 AM EST Patient called this am and he is concern about his Ct Scan which his [facility] Physician read to him and he stated that some findings was discover on his scan which he did npt understand he had this testingon 07/31/2024 he can be reached at [phone] * Telephone Encounter - Marli Burns LPN - 09/05/2024 8:35 AM EST Made pt an appt to come to the office to discuss test results. Patient satisfied documented in this encounter Plan of Treatment Upcoming Encounters Date Type Department Care Team (Late st Contact Info) Description 07/05/2025 1:30 PM EDT Appointment [facility] [address] [facility] [place] [address] Jessi Martinez, DO [address] [place] [address] 07/05/2025 2:15 PM EDT Appointment [facility] [address] [place] [place] [address] Jessi Martinez, DO [address] [place] [address] 07/05/2025 3:15 PM EDT Appointment [facility] [address] [place] [address] Jessi Martinez, DO [address] [place] [address] 07/05/2025 3:45 PM EDT Appointment [facility] - Vascular [address] [place] [address] Jessi Martinez, DO [address] [place] [address] 07/15/2025 10:15 AM EDT Office Visit [facility] [address] [place] [address] Jessi Martinez, DO [address] [place] [address] documented as of this encounter Goals Goal Patient Goal Type Associated Problems Recent Progress Patient-Stated? Author <enter goal here> General Yes Edgardo Wright, RN Note: Evaluation of progress towards goal: Patient will discharge to inpatient rehab. - Edgardo Wright, GIOVANNI 02/03/23 1:07 PM documented as of this encounter Visit Diagnoses Not on filedocumented in this encounter Care Teams Lumber Tallier Relationship Specialty Start Date End Date Elton Wilson Jr., [address] [place] [address] [phone] PCP - General Internal Medicine 09/26/17 documented as of this encounter
--- OUTSIDE RECORDS SUMMARY | 2025-06-05 08:57 | XMS_ITS | Encounter Summary ---
Demographics Address [address] [place] [address] Mobile Phone Email Address Preferred Language Dutch Marital Status Significant Other Christianity Affiliation Unknown Race White Ethnic Group Not or Lati no Author Organization [facility] Sys tem Address [facility] [id number] [address] [place] [address] Care Team Providers Care Office Manager Receptionist Name Role Phone Katie Galdamez DO, Charles L Primary Care Provider Encounter Details Date Type Department Care Team (Latest Contact Info) Description 01/31/2023 Orders Only [facility] [address] [place] [address] Cherry Bacon RN Pure hypercholesterolemia (Primary Dx) Social History Tobacco Use Types Packs/Day Years [...] have Coronavirus / COVID-19? No / Unsure 01/03/2023 12:50 PM EDT documented as of this encounter Mental Status * Question Answer Entry Date Author Overall Cognitive Status WFL 02/03/2023 10:37 AM EDT Wilber Gallardo, PT documented in this encounter Plan of Treatment Upcoming Encounters Date Type Department Care Team (Late st Contact Info) Description 07/05/2025 1:30 PM EDT Appointment [facility] [address] [facility] [place] [address] Jessi Martinez, DO [address] [place] [address] 07/05/2025 2:15 PM EDT Appointment [facility] [address] [place] [address] Jessi Martinez, DO [address] [facility] [address] [place] [address] 07/05/2025 3:15 PM EDT Appointment [place] [address] [facility] [place] [address] Jessi Martinez, DO [address] [facility] [address] [place] [address] 07/05/2025 3:45 PM EDT Appointment [place] [address] [place] [address] Jessi Martinez, DO [address] [facility] [address] [place] [address] 07/15/2025 10:15 AM EDT Office Visit [facility] [place] [address] Jessi Martinez, DO [address] [facility] [address] [place] [address] (work) documented as of this encounter Goals Goal Patient Goal Type Associated Problems Recent Progress Patient-Stated? Author <enter goal here> General Yes Edgardo Wright, GIOVANNI Note: Evaluation of progress towards goal: Patient will discharge to inpatient rehab. - Edgardo Wright RN 02/03/23 1:07 PM documented as of this encounter Results * (ABNORMAL) Lipid profile (02/26/2023 11:05 AM EDT) [facility] Cholesterol 140(L) 150 - 200 mg/dL 02/26/2023 4:23 PM EDT [facility] Triglycerides 191(H) 27 - 150 mg/dL 02/26/2023 4:23 PM EDT [facility] HDL Cholesterol 56 >39 mg/dL 4:23 PM EDT [facility] Comment: HDL <40 mg/dL - High Risk HDL > or = 40mg/dL- Desirable HDL >60 mg/dL - Negative Risk VLDL 38(H) 0 - 30 mg/dL 02/26/2023 4:23 PM EDT [facility] LDL (calc) 46 <130 mg/dL 02/26/2023 4:23 PM EDT [facility] Comment: LDL <100 mg/dL - Desirable LDL >160 mg/dL - High Risk Cholesterol:HDL Ratio 2.5 1.0 - 5.0 02/26/2023 4:23 PM EDT [facility] PLASMA 02/26/2023 11:0 5 AM EDT 02/26/2023 11:06 AM EDT Iron Arroyo MD LAB BLOOD ORDERABLES Final Re sult [facility] [address] [place] [address] documented in this encounter Visit Diagnoses Diagnosis Pure hypercholesterolemia- Primary documented in this encounter Care Teams Office Manager Receptionist Relationship Specialty Start Date End Date Elton Wilson Jr., [facility] [place] [phone] PCP - General Internal Medicine 09/26/17 documented as of this encounter
--- OUTSIDE RECORDS SUMMARY | 2025-06-05 08:57 | XMS_ITS | Encounter Summary ---
Demographics Address [address] [place] [address] Mobile Phone Email Address Preferred Language Sierra Leonean Marital Status Significant Other Restoration Affiliation Unknown Race White Ethnic Group Not or Lati no Author Organization [facility] tem Address [id number] [address] [place] [address] Care Team Providers Care Unclaimed Property Officer Name Role Phone Katie Galdamez DO, Charles L Primary Care Provider Reason for Visit * Reason Onset Date Comments STAFF MESSAGE 03/04/2021 Encounter Details Date Type Department Care Team (Late st Contact Info) Description 03/04/2021 Telephone [facility] [address] [place] [address] Beth Larios APRN-GERDA [address] [place] [address] STAFF MESSAGE Social History Tobacco Use Types Packs/Day Years [...] * Telephone Encounter - Shira Lujan - 03/04/2021 11:45 AM EDT ----- Message from MIGUEL Stanford sent at 03/04/2021 9:42 AM EDT ----- Patient is being discharged from [facility]. Status post CABG x3. Will need follow-up in the [place] office in 7-10 days. Thanks. * Telephone Encounter - Alisha Winter - 03/04/2021 11:45 AM EDT PT STILL ADMITTED documented in this encounter Plan of Treatment Upcoming Encounters Date Type Department Care Team (Late st Contact Info) Description 07/05/2025 1:30 PM EDT Appointment [facility] [address] [place] [address] Jessi Martinez, DO [address] [place] [address] 07/05/2025 2:15 PM EDT Appointment [facility] [address] [place] [address] Jessi Martinez, DO [address] [place] [address] 07/05/2025 3:15 PM EDT Appointment [facility] [address] [place] [address] Jessi Martinez, DO [address] [place] [address] 07/05/2025 3:45 PM EDT Appointment [facility] - Vascular [address] [place] [address] Jessi Martinez, DO [address] [place] [address] 07/15/2025 10:15 AM EDT Office Visit [facility] [address] [place] [address] Jessi Martinez, [address] [facility] [address] [place] [address] documented as of this encounter Visit Diagnoses Not on filedocumented in this encounter Care Teams Unclaimed Property Officer Relationship Specialty Start Date End Date Elton Wilson Jr., [address] [place] [address] PCP - General Internal Medicine 09/26/17 documented as of this encounter
--- OUTSIDE RECORDS SUMMARY | 2025-06-05 08:57 | XMS_ITS | Encounter Summary ---
Demographics Address [address] [place] [address] Mobile Phone Email Address Preferred Language Chinese Marital Status Significant Other Buddhist Affiliation Unknown Race White Ethnic Group Not or Lati no Author Organization [facility] [employer] Sys tem Address [id number] [address] [place] [address] Care Team Providers Care Aircraft Structural Repair Mechanic Name Role Phone Katie Galdamez DO, Charles L Primary Care Provider Reason for Visit * Reason Comments Med Refill Encounter Details Date Type Department Care Team (Late st Contact Info) Description 10/20/2024 Refill [facility] [address] [place] [address] Arleth Peterson, HVAC REFRIGERATION TECHNICIAN-[facility] [address] [place] [address] Med Refill Social History Tobacco Use Types Packs/Day Years Used Date Smoking Tobacco: Former Cigarettes 0.3 39 1 971 - 2009 Smokeless Tobacco: Never Alcohol Use Standard Drinks/Week [...] encounter Miscellaneous Notes * Telephone Encounter - Yanira Harris LPN - 10/20/2024 8:05 AM EST Duplicate-signed 5 days ago documented in this encounter Plan of Treatment Upcoming Encounters Date Type Department Care Team (Late st Contact Info) Description 07/05/2025 1:30 PM EDT Appointment [facility] [address] [place] [address] Jessi Martinez, DO [address] [place] [address] 07/05/2025 2:15 PM EDT Appointment [facility] [address] [place] [address] Jessi Martinez, DO [address] [place] [address] 07/05/2025 3:15 PM EDT Appointment [facility] [address] [place] [address] Jessi Martinez, DO [address] [place] [address] 07/05/2025 3:45 PM EDT Appointment [facility] [address] [place] [address] Jessi Martinez, DO [address] [place] [address] 07/15/2025 10:15 AM EDT Office Visit [facility] [address] [place] [address] Jessi Martinez DO [address] [place] [address] documented as of this encounter Goals Goal Patient Goal Type Associated Problems Recent Progress Patient-Stated? Author <enter goal here> General Yes Edgardo Wright, RN Note: Evaluation of progress towards goal: Patient will discharge to inpatient rehab. - Edgardo Wright RN 02/03/23 1:07 PM documented as of this encounter Visit Diagnoses Diagnosis Hypertriglyceridemia Pure hyperglyceridemia Pure hypercholesterolemia History of coronary artery bypass graft x 3 documented in this encounter Care Teams Aircraft Structural Repair Mechanic Relationship Specialty Start Date End Date Elton Wilson Jr., [address] [place] [address] PCP - General Internal Medicine 09/26/17 documented as of this encounter
--- OUTSIDE RECORDS SUMMARY | 2025-06-05 08:57 | XMS_ITS | Encounter Summary ---
Demographics Address [address] [place] [address] Mobile Phone Email Address Preferred Language Honduran Marital Status Significant Other Catholic Affiliation Unknown Race White Ethnic Group Not or Lati no Author Organization That{img} Sys tem Address [facility][id number] [address] [place] [address] Care Team Providers Care Tape Sewer Name Role Phone Katie Galdamez DO, Charles L Primary Care Provider Encounter Details Date Type Department Care Team (Late st Contact Info) Description 01/13/2022 [facility]phone [facility] [address] [place] [address] Марина Luna, GIOVANNI Social History Tobacco Use Types Packs/Day Years Used Date Smoking Tobacco: Former Smokeless Tobacco: Never Alcohol Use Standard Drinks/Week Comments Yes 0 (1 standard drink = 0.6 oz pur e alcohol) socially Childcare Answer Date Recorded Childcare Unknown 03/07/2019 [...] encounter Miscellaneous Notes * Telephone Encounter - Марина Luna RN - 01/13/2022 1:19 PM EDT [facility] called rx was sent over for metoprolol tartrate 25 mg qd. Pt has been taking it BID. He was lat [facility] * Telephone Encounter - Grayson Reyes MD - 01/13/2022 1:19 PM EDT Send out prescription for metoprolol tartrate 25 b.i.d.-90 day supply with 3 refills * Telephone Encounter - Марина Luna RN - 01/13/2022 1:19 PM EDT Called pt with instructions to increase metoprolol tartarte 25 mg BID. slm documented in this encounter Plan of Treatment Upcoming Encounters Date Type Department Care Team (Late st Contact Info) Description 07/05/2025 1:30 PM EDT Appointment [facility] [address] [place] [address] Jessi Martinez, DO [address] [place] [address] 07/05/2025 2:15 PM EDT Appointment [place] [phone] [place] [address] Jessi Martinez, DO [address] [place] [address] 07/05/2025 3:15 PM EDT Appointment [facility] [address] [place] [address] Jessi Martinez, DO [address] [place] [address] 07/05/2025 3:45 PM EDT Appointment [facility] [address] [place] [address] Jessi Martinez, DO [address] [facility] [address] [place] [address] 07/15/2025 10:15 AM EDT [facility] Visit [facility] [place] [address] [place] [address] Jessi Martinez DO [address] [facility] [address] [place] [address] documented as of this encounter Visit Diagnoses Not on filedocumented in this encounter Care Teams Tape Sewer Relationship Specialty Start Date End Date Elton Wilson Jr., [address] [place] [phone] PCP - General Internal Medicine 09/26/17 documented as of this encounter
--- OUTSIDE RECORDS SUMMARY | 2025-06-05 08:57 | XMS_ITS | Encounter Summary ---
Demographics Address [address] [place] [address] Mobile Phone Email Address Preferred Language Cuban Marital Status Significant Other Methodist Affiliation Unknown Race White Ethnic Group Not or Lati no Author Organization [facility] [employer] [facility] tem Address [facility]-[id number] [address] [place] [address] Care Team Providers Care Six Horse Hitch Driver Name Role Phone Katie Galdamez DO, Charles L Primary Care Provider Encounter Details Date Type Department Care Team (Late st Contact Info) Description 06/11/2021 Orders Only [facility] [address] [facility] [address] [place] [address] External, Scanning Provider Social History Tobacco Use Types Packs/Day Years [...] have Coronavirus / COVID-19? No / Unsure 06/11/2021 8:42 AM EDT documented as of this encounter Plan of Treatment Upcoming Encounters Date Type Department Care Team (Late st Contact Info) Description 07/05/2025 1:30 PM EDT Appointment [facility] - [facility] [address] [facility] [place] [address] Jessi Martinez, DO [address] [facility] [address] [place] [address] 07/05/2025 2:15 PM EDT Appointment [facility] [address] [place] [address] Jessi Martinez, DO [address] [facility] [address] [place] [address] 07/05/2025 3:15 PM EDT Appointment [place] [address] [place] [address] Jessi Martinez, DO [address] [address] 07/05/2025 3:45 PM EDT Appointment [place] [address] [place] [address] Jessi Martinez, DO [address] [address] 07/15/2025 10:15 AM EDT Office Visit [facility] [place] [address] Jessi Martinez, DO [address] [address] documented as of this encounter Procedures Procedure Name Priority Date/Time Associated Diagnosis Comments MULTIPLE LABS Routine 05/29/2021 LIPID PROFILE Routine 05/29/2021 documented in this encounter Results * Lipid profile (05/29/2021) External Cholesterol 164 MANUALLY TRANSCRIBED RESULTS External Hdl Cholesterol 52 MANUALLY TRANSCRIBED RESULTS External Ldl (Calc) 72 MANUALLY TRANSCRIBED RESULTS External Triglycerides 199 MANUALLY TRANSCRIBED RESULTS us Scanning Provider External LAB BLOOD ORDERABLES Edited Result - Final MANUALLY TRANSCRIBED RESULTS * Multiple labs (05/29/2021) us Scanning Provider External MI IMAGING Final Result Performing Organization Address City/[facility]/ZIP Co de Phone Number MANUALLY TRANSCRIBED RESULTS documented in this encounter Visit Diagnoses Not on filedocumented in this encounter Care Teams Six Horse Hitch Driver Relationship Specialty Start Date End Date Elton Wilson Jr., DO [address] [place] [address] PCP - General Internal Medicine 09/26/17 documented as of this encounter
--- OUTSIDE RECORDS SUMMARY | 2025-06-05 08:57 | XMS_ITS | Encounter Summary ---
Demographics Address [address] [place] [address] Mobile Phone Email Address Preferred Language Anguillan Marital Status Significant Other Muslim Affiliation Unknown Race White Ethnic Group Not or Lati no Author Organization [facility] Address [id number] [address] [place] [address] Care Team Providers Care Airborne Sensor Specialist Name Role Phone Katie Galdamez DO, Charles L Primary Care Provider Encounter Details Date Type Department Care Team (Late Contact Info) Description 06/02/2021 Orders Only [facility] [address] [facility] 1 [place] [address] Dora Garcia RN Chronic coronary artery disease (Primary Dx); Encounter for therapeutic drug monitoring Social History Tobacco Use Types Packs/Day Years [...] have Coronavirus / COVID-19? No / Unsure 05/28/2021 8:40 AM EDT documented as of this encounter Plan of Treatment Upcoming Encounters Date Type Department Care Team (Late Contact Info) Description 07/05/2025 1:30 PM EDT Appointment [facility] [address] [facility] [place] [address] Jessi Martinez, DO [address] [facility] [address] [place] [address] 07/05/2025 2:15 PM EDT [facility]ointment [facility] [address] [facility] [place] [address] Jessi Martinez, DO [address] [facility] [address] [place] [address] 07/05/2025 3:15 PM EDT Appointment [place] [address] [place] [address] Jessi Martinez, DO [address] [facility] [address] [place] [address] 07/05/2025 3:45 PM EDT Appointment [place] [address] [place] [address] Jessi Martinez, DO [address] [facility] [address] [place] [address] 07/15/2025 10:15 AM EDT Office Visit [facility] [place] [address] Jessi Martinez, DO [address] [facility] [address] [place] [address] documented as of this encounter Visit Diagnoses Diagnosis Chronic coronary artery disease- Primary Coronary atherosclerosis of unspecified type of vessel, [place] or graft Encounter for therapeutic drug monitoring documented in this encounter Care Teams Airborne Sensor Specialist Relationship Specialty Start Date End Date Elton Wilson Jr., DO [address] [place] [address] PCP - General Internal Medicine 09/26/17 documented as of this encounter
--- OUTSIDE RECORDS SUMMARY | 2025-06-05 08:57 | XMS_ITS | Encounter Summary ---
Demographics Address [address] [place] [address] Mobile Phone Email Address Preferred Language British Virgin Islander Marital Status Significant Other Methodist Affiliation Unknown Race White Ethnic Group Not or Lati no Author Organization [facility] [employer] tem Address [id number] [address] [place] [address] Care Team Providers Care Maintenance Associate Name Role Phone Katie Galdamez DO, Charles L Primary Care Provider Encounter Details Date Type Department Care Team (Late st Contact Info) Description 06/04/2024 [facility] [address] [address] Jessica Sauceda LPN Social History Tobacco Use Types Packs/Day [...] encounter Miscellaneous Notes * Telephone Encounter - Jessica Sauceda LPN - 06/04/2024 11:49 AM EDT Pt lm on [place] nurse line, looking for tremaine? documented in this encounter Plan of Treatment Upcoming Encounters Date Type Department Care Team (Late st Contact Info) Description 07/05/2025 1:30 PM EDT Appointment [facility] Vascular [address] [place] [address] Jessi Martinez, DO [address] [place] [address] 07/05/2025 2:15 PM EDT Appointment [facility] Vascular [address] [place] [address] Jessi Martinez, DO [address] [place] [address] 07/05/2025 3:15 PM EDT Appointment [facility] [address] [place] [address] Jessi Martinez, DO [address] [place] [address] 07/05/2025 3:45 PM EDT Appointment [facility] Vascular [address] [place] [address] Jessi Martinez, DO [address] [place] [address] 07/15/2025 10:15 AM EDT Office Visit [facility] [place] [address] [place] [address] Jessi Martinez, [address] [facility] [address] [place] [address] documented as of this encounter Goals Goal Patient Goal Type Associated Problems Recent Progress Patient-Stated? Author <enter goal here> General Yes Edgardo Wright, RN Note: Evaluation of progress towards goal: Patient will discharge to inpatient rehab. - Edgardo Wright RN 02/03/23 1:07 PM documented as of this encounter Visit Diagnoses Not on filedocumented in this encounter Care Teams Maintenance Associate Relationship Specialty Start Date End Date Elton Wilson Jr., DO [address] [place] [address] PCP - General Internal Medicine 09/26/17 documented as of this encounter
--- OUTSIDE RECORDS SUMMARY | 2025-06-05 08:57 | XMS_ITS | Encounter Summary ---
Demographics Address [address] [place] [address] Mobile Phone Email Address Preferred Language [place] Citizen Marital Status Significant Other Shinto Affiliation Unknown Race White Ethnic Group Not or Lati no Author Organization [employer] s tem Address [facility]-[id number] [address] [place] [address] Care Team Providers Care Corporate Controller Name Role Phone Katie Galdamez DO, Charles L Primary Care Provider Reason for Visit * Reason Onset Date Comments Warfarin therapy 07/16/2021 Encounter Details Date Type Department Care Team (Late st Contact Info) Description 07/16/2021 [facility]phone [facility] [address] [facility] 1 [place] [address] Dora Garcia RN Warfarin therapy Social History Tobacco Use Types Packs/Day Years [...] have Coronavirus / COVID-19? No / Unsure 07/16/2021 11:43 AM EDT documented as of this encounter Miscellaneous Notes * Telephone Encounter - Dora Garcia RN - 07/16/2021 8:37 AM EDT Pt inquiring whether can switch to Eliquis before leaving for [place] -although your last letter states no a-fib in rehab may dc warfarin-rehab states no afib - please advise thanks * Telephone Encounter - Chi Alegria MD - 07/16/2021 8:37 AM EDT When is he going to [place]? * Telephone Encounter - Dora Garcia RN - 07/16/2021 8:37 AM EDT Pt reports that since he is finished with cardiac rehab he may be leaving anytime now-yor note was from 04/15 thanks * Telephone Encounter - Chi Alegria MD - 07/16/2021 8:37 AM EDT I reviewed his cardiac rehab and I see no AFib a flutter. He can stop his warfarin at this time. Remain on baby aspirin * Telephone Encounter - Dora Garcia RN - 07/16/2021 8:37 AM EDT Pt and Notified ok to stop Warfarin documented in this encounter Plan of Treatment Upcoming Encounters Date Type Department Care Team (Late st Contact Info) Description 07/05/2025 1:30 PM EDT Appointment [facility] V[facility] [address] [address] Jessi Martinez, DO [address] [facility] [address] [place] [address] 07/05/2025 2:[address] [facility] Vascular [address] [place] [address] Jessi Martinez, DO [address] [facility] [address] [place] [address] 07/05/2025 3:[address] [facility] Vascular [address] [place] [address] Jessi Martinez, DO [address] [facility] [address] [place] [address] 07/05/2025 3:[address] [facility] Vascular [address] [place] [address] Jessi Martinez, DO [address] [facility] [address] [place] [address] 07/15/2025 10:15 AM EDT Office Visit [facility] [address] [place] [address] Jessi Martinez, DO [address] [facility] [address] [place] [address] documented as of this encounter Visit Diagnoses Not on filedocumented in this encounter Care Teams Corporate Controller Relationship Specialty Start Date End Date Elton Wilson Jr., DO [address] [place] [phone] PCP - General Internal Medicine 09/26/17 documented as of this encounter
--- OUTSIDE RECORDS SUMMARY | 2025-06-05 08:57 | XMS_ITS | Encounter Summary ---
Demographics Address [address] [place] [address] Mobile Phone Email Address Preferred Language Moldovan Marital Status Significant Other Adventist Affiliation Unknown Race White Ethnic Group Not or Lati no Author Organization [facility] tem Address [id number] [address] [place] [address] Care Team Providers Care Grinder Dresser Name Role Phone Katie Galdamez DO, Charles L Primary Care Provider Encounter Details Date Type Department Care Team (Late st Contact Info) Description 05/26/2022 Telephone [facility] [address] [place] [address] Myranda Bach RN Social History Tobacco Use Types Packs/Day [...] have Coronavirus / COVID-19? No / Unsure 05/17/2022 8:43 AM EDT documented as of this encounter Miscellaneous Notes * Telephone Encounter - Myranda Bach RN - 05/26/2022 11:40 AM EDT Patient calls today to see if he has an upcoming appointment. Patient is informed that he is scheduled Wednesday, June 01, 2022 at 09:15. Patient verbalized understanding. documented in this encounter Plan of Treatment Upcoming Encounters Date Type Department Care Team (Late st Contact Info) Description 07/05/2025 1:30 PM EDT Appointment [facility] [address] [place] [address] Jessi Martinez, DO [address] [place] [address] 07/05/2025 2:15 PM EDT Appointment [place] [phone] [place] [address] Jessi Martinez, DO [address] [facility] [address] [place] [address] 07/05/2025 3:15 PM EDT Appointment [place] [address] [place] [address] Jessi Martinez, DO [address] [facility] [address] [place] [address] 07/05/2025 3:45 PM EDT Appointment [place] [address] [place] [address] Jessi Martinez, DO [address] [facility] [address] [place] [address] 07/15/2025 10:15 AM EDT Office Visit [facility] [place] [address] Jessi Martinez, DO [address] [facility] [address] [place] [address] documented as of this encounter Visit Diagnoses Not on filedocumented in this encounter Care Teams Grinder Dresser Relationship Specialty Start Date End Date Elton Wilson Jr., DO [address] [place] [address] PCP - General Internal Medicine 09/26/17 documented as of this encounter
--- OUTSIDE RECORDS SUMMARY | 2025-06-05 08:57 | XMS_ITS | Encounter Summary ---
Demographics Address [address] [place] [address] Mobile Phone Email Address Preferred Language Lie[place] Citizen Marital Status Significant Other Hinduism Affiliation Unknown Race White Ethnic Group Not or Lati no Author Organization [employer] Address [facility]-[id number] [address] [place] [address] Care Team Providers Care Photoengraving Supervisor Name Role Phone Katie Galdamez DO, Charles L Primary Care Provider Encounter Details Date Type Department Care Team (Late st Contact Info) Description 03/11/2021 [facility]phone [facility] [address] [place] [address] Dora Garcia RN Social History Tobacco Use [...] have Coronavirus / COVID-19? No / Unsure 03/13/2021 12:47 PM EDT documented as of this encounter Miscellaneous Notes * Telephone Encounter - Dora Garcia RN - 03/11/2021 3:55 PM EDT Telemed nurse calls with report of post op problems -occ SOB dizziness when changing positions c/o palpitations Although rhythm is normal 108/72 66 -report of fx ribs using more pain meds than he should. OV 03/13/2021-nurse visit tomorrow with home care-no acute problems to report-[facility] documented in this encounter Plan of Treatment Upcoming Encounters Date Type Department Care Team (Late st Contact Info) Description 07/05/2025 1:30 PM EDT Appointment [facility] Vascular [address] [place] [address] Jessi Martinez, DO [address] [facility] [facility] [address] [place] [address] 07/05/2025 2:15 PM EDT Appointment [place] [address] [place] [address] Jessi Martinez, DO [address] [facility] [address] [place] [address] 07/05/2025 3:15 PM EDT Appointment [place] [address] [place] [address] Jessi Martinez, DO [address] [facility] [address] [place] [address] 07/05/2025 3:45 PM EDT Appointment [facility] [address] [place] [address] Jessi Martinez, DO [address] [facility] [address] [place] [address] 07/15/2025 10:15 AM EDT Office Visit [facility] [place] [address] Jessi Martinez DO [address] [facility] [address] [place] [address] documented as of this encounter Visit Diagnoses Not on filedocumented in this encounter Care Teams Photoengraving Supervisor Relationship Specialty Start Date End Date Elton Wilson Jr., DO [facility] [place] [address] PCP - General Internal Medicine 09/26/17 documented as of this encounter
--- OUTSIDE RECORDS SUMMARY | 2025-06-05 08:57 | XMS_ITS | Encounter Summary ---
Demographics Address [address] [place] [address] Mobile Phone Email Address Preferred Language Macedonian Marital Status Significant Other Faith Affiliation Unknown Race White Ethnic Group Not or Lati no Author Organization [facility] [employer] Sys tem Address [id number] [address] [place] [address] Care Team Providers Care Medical Device Sales Representative Name Role Phone Katie Galdamez DO, Charles L Primary Care Provider Encounter Details Date Type Department Care Team (Late st Contact Info) Description 06/23/2022 Telephone [facility] [address] [place] [address] Benoit Almendarez MD [address] [place] [address] Social History Tobacco Use Types Packs/Day Years Used Date Smoking Tobacco: Former Cigarettes 0.3 10 2 000 - 2010 Smokeless Tobacco: Never Alcohol Use [...] have Coronavirus / COVID-19? No / Unsure 06/23/2022 11:23 AM EDT documented as of this encounter Miscellaneous Notes * Telephone Encounter - Laila Jorje - 06/23/2022 9:12 AM EDT Patient called and he stated that he had surgery on 06/14/2022 and his left incision is very swollenand hard comparsion to his right incision he is concerned about this he can be reached at [phone]. Please advise * Telephone Encounter - Marli Burns LPN - 06/23/2022 9:12 AM EDT Patient is going to go to the ED today d/t him not being able to come to [facility]. We don't haveanyone going to [place] until Tuesday. Patient is very concerned. documented in this encounter Plan of Treatment Upcoming Encounters Date Type Department Care Team (Late st Contact Info) Description 07/05/2025 1:30 PM EDT Appointment [facility] Vascular [address] [place] [address] Jessi Martinez, DO [address] [facility] [address] [place] [address] 07/05/2025 2:15 PM EDT Appointment [facility] Vascular [address] [facility] [place] [address] Jessi Martinez, DO [address] [facility] [address] [place] [address] 07/05/2025 3:15 PM EDT Appointment [facility] Vascular [address] [facility] [place] [address] Jessi Martinez, DO [address] [facility] [address] [place] [address] 07/05/2025 3:45 PM EDT Appointment [facility] - Vascular [address] [place] [address] Jessi Martinez, DO [address] [place] [address] 07/15/2025 10:15 AM EDT Office Visit [facility] [address] [place] [address] Jessi Martinez, DO [address] [place] [address] documented as of this encounter Visit Diagnoses Not on filedocumented in this encounter Care Teams Medical Device Sales Representative Relationship Specialty Start Date End Date Elton Wilson Jr., DO [facility] [place], [place] [phone] PCP - General Internal Medicine 09/26/17 documented as of this encounter
--- OUTSIDE RECORDS SUMMARY | 2025-06-05 08:57 | XMS_ITS | Encounter Summary ---
Demographics Address [address] [place] [address] Mobile Phone Email Address Preferred Language Australian Marital Status Significant Other Mandaeism Affiliation Unknown Race White Ethnic Group Not or Lati no Author Organization [employer] Sys tem Address [facility]-[id number] [address] [place] [address] Care Team Providers Care Die Finisher Name Role Phone Katie Galdamez DO, Charles L Primary Care Provider Encounter Details Date Type Department Care Team (Late st Contact Info) Description 04/20/2021 [facility]phone [facility] [address] [place] [address] Dora Garcia RN Social History Tobacco Use [...] have Coronavirus / COVID-19? No / Unsure 04/23/2021 12:50 PM EDT documented as of this encounter Miscellaneous Notes * Telephone Encounter - Dora Garcia RN - 04/20/2021 1:21 PM EDT Cardiac rehab Maryanne Henderson reports pt having episodes of low BP in rehab SAtanding 85/59 sitting 104/45 went to see pcp and Dr Wilson prefers we adjust his meds Metoprolol 25 mg BID Pacerone 200 mg QD please review and advise for JRL Pt s/p CABG Post op AFib thanks * Telephone Encounter - Kassidy Mckeon MD - 04/20/2021 1:21 PM EDT Needs to be seen in clinic with repeat orthostatics including heart rate to determine if dehydrated * Telephone Encounter - Dora Garcia RN - 04/20/2021 1:21 PM EDT Rehab notified to send pt over to sched appt documented in this encounter Plan of Treatment Upcoming Encounters Date Type Department Care Team (Late st Contact Info) Description 07/05/2025 1:30 PM EDT Appointment [facility] Vascular [address] [place] [address] Jessi Martinez, DO [address] [place] [address] 07/05/2025 2:15 PM EDT Appointment [facility] Vascular [address] [place] [address] Jessi Martinez, DO [address] [place] [address] 07/05/2025 3:15 PM EDT Appointment [facility] Vascular [address] [place] [address] Jessi Martinez, DO [address] [place] [address] 07/05/2025 3:45 PM EDT Appointment [facility] - Vascular [address] [place] [address] Jessi Martinez, DO [address] [facility] [address] [place] [address] 07/15/2025 10:15 AM EDT Office Visit [facility] [address] [place] [address] Jessi Martinez, DO [address] [facility] [address] [place] [address] documented as of this encounter Visit Diagnoses Not on filedocumented in this encounter Care Teams Die Finisher Relationship Specialty Start Date End Date Elton Wilson Jr., [address] [place] [address] PCP - General Internal Medicine 09/26/17 documented as of this encounter
--- OUTSIDE RECORDS SUMMARY | 2025-06-05 08:57 | XMS_ITS | Encounter Summary ---
Demographics Address [address] [place] [address] Mobile Phone Email Address Preferred Language Jordanian Marital Status Significant Other Congregational Affiliation Unknown Race White Ethnic Group Not or Lati no Author Organization [facility] tem Address [facility]-[id number] [address] [place] [address] Care Team Providers Care Respiratory Therapy Technician Name Role Phone Katie Galdamez DO, Charles L Primary Care Provider Encounter Details Date Type Department Care Team (Late st Contact Info) Description 08/25/2022 Telephone [facility] [address] [place] [address] Myranda Bach RN Social History Tobacco Use [...] have Coronavirus / COVID-19? No / Unsure 08/27/2022 8:11 AM EST documented as of this encounter Miscellaneous Notes * Telephone Encounter - Myranda Bach RN - 08/25/2022 11:44 AM EST Patient called office to confirm 08/27/2022 procedure. He also wanted to report that he had Left L4/5 L5/1 RFA 08/06/2022 and pain is worse now. He was asked if the pain was different that prior to RFA or if the pain is the same type of pain but more intense. He states the pain is the same however the intensity has increased. Patient states he is taking 2 ibuprofen once daily. He is informed that he can take IBU every 4-6 hours as needed for pain. RFA discharge instructions/expectations were reviewed with patient. It was also explained to patient that it can take 2-4 weeks before the full benefits of RFA are experience. PVU. documented in this encounter Plan of Treatment Upcoming Encounters Date Type Department Care Team (Late st Contact Info) Description 07/05/2025 1:30 PM EDT Appointment [facility]ascular [address] [place] [address] Jessi Martinez, DO [address] [facility] [address] [place] [address] 07/05/2025 2:15 PM EDT Appointment [facility] [address] [place] [address] Jessi Martinez DO [address] [facility] [address] [place] [address] 07/05/2025 3:15 PM EDT Appointment [facility] [address] [place] [address] Jessi Martinez, DO [address] [facility] [address] [place] [address] 07/05/2025 3:45 PM EDT Appointment [facility] [address] [place] [address] Jessi Martinez, DO [address] [facility] [address] [place] [address] 07/15/2025 10:15 AM EDT Office Visit [facility] [place] [address] [place] [address] Jessi Martinez, [address] [facility] [address] [place] [address] documented as of this encounter Visit Diagnoses Not on filedocumented in this encounter Care Teams Respiratory Therapy Technician Relationship Specialty Start Date End Date Elton Wilson Jr., [address] [place] [id number] PCP - General Internal Medicine 09/26/17 documented as of this encounter
--- OUTSIDE RECORDS SUMMARY | 2025-06-05 08:57 | XMS_ITS | Encounter Summary ---
Demographics Address [address] [place] [address] Mobile Phone Email Address Preferred Language Namibian Marital Status Significant Other Hindu Affiliation Unknown Race White Ethnic Group Not or Lati no Author Organization [facility] tem Address [id number] [address] [facility] [place] [address] Care Team Providers Care Senior Windows Systems Engineer Name Role Phone Katie Galdamez DO, Charles L Primary Care Provider Encounter Details Date Type Department Care Team (Late st Contact Info) Description 06/16/2022 Telephone [facility] [address] [place] [phone] Benoit Almendarez MD [address] [place] [address] Social History Tobacco Use Types Packs/Day Years [...] have Coronavirus / COVID-19? No / Unsure 06/14/2022 5:41 AM EDT documented as of this encounter Miscellaneous Notes * Telephone Encounter - Laila Recinos - 06/16/2022 1:17 PM EDT Patient needs an prescription for his BACLOFEN and his NAPROSYN and to be sent to the [facility] these medication was on his discharge summary for his Surgery. Please advise * Telephone Encounter - Marli Burns LPN - 06/16/2022 1:17 PM EDT Patients medication does not get managed by vascular, it looks like pain management. Called patient. documented in this encounter Plan of Treatment Upcoming Encounters Date Type Department Care Team (Late st Contact Info) Description 07/05/2025 1:30 PM EDT Appointment [facility] [address] [place] [address] Jessi Martinez, DO [address] [facility] [address] [place] [address] 07/05/2025 2:15 PM EDT Appointment [facility] [address] [place] [address] Jessi Martinez, DO [address] [facility] [address] [place] [address] 07/05/2025 3:15 PM EDT Appointment [facility] [address] [place] [address] Jessi Martinez, DO [address] [facility] [address] [place] [address] 07/05/2025 3:45 PM EDT Appointment [facility] [address] [place] [address] Jessi Martinez, DO [address] [facility] [address] [place] [address] 07/15/2025 10:15 AM EDT Office Visit [facility] [place] [address] [place] [address] Jessi Martinez, [address] [facility] [address] [place] [address] documented as of this encounter Visit Diagnoses Not on filedocumented in this encounter Care Teams Senior Windows Systems Engineer Relationship Specialty Start Date End Date Elton Wilson Jr., [facility] [place], [place] [phone] PCP - General Internal Medicine 09/26/17 documented as of this encounter
--- OUTSIDE RECORDS SUMMARY | 2025-06-05 08:57 | XMS_ITS | Encounter Summary ---
Demographics Address [address] [place] [address] Mobile Phone Email Address Preferred Language Canadian Marital Status Significant Other Confucianism Affiliation Unknown Race White Ethnic Group Not or Lati no Author Organization [facility] Address [facility] [id number] [address] [place] [address] Care Team Providers Care Senior Cyber Intelligence Analyst Name Role Phone Katie Galdamez DO, Charles L Primary Care Provider Encounter Details Date Type Department Care Team (Late st Contact Info) Description 11/12/2024 Orders Only [facility] [address] [place] [phone] External, Scanning Provider Social History Tobacco Use [...] Info) Description 07/05/2025 1:30 PM EDT Appointment [facility] [address] [facility] [place] [address] Jessi Martinez, DO [address] [facility] [address] [place] [address] 07/05/2025 2:15 PM EDT Appointment [facility] [address] [place] [address] Jessi Martinez, DO [address] [facility] [address] [place] [address] 07/05/2025 3:15 PM EDT Appointment [facility] [address] [place] [address] Jessi Martinez, DO [address] [facility] [address] [place] [address] 07/05/2025 3:45 PM EDT Appointment [facility] [address] [place] [address] Jessi Martinez, DO [address] [facility] [address] [place] [address] 07/15/2025 10:15 AM EDT Office Visit [facility] [place] [address] Jessi Martinez, DO [address] [facility] [address] [place] [address] documented as of this encounter Goals Goal Patient Goal Type Associated Problems Recent Progress Patient-Stated? Author <enter goal here> General Yes Edgardo Wright, GIOVANNI Note: Evaluation of progress towards goal: Patient will discharge to inpatient rehab. - Edgardo Wright RN 02/03/23 1:07 PM documented as of this encounter Procedures Procedure Name Priority Date/Time Associated Diagnosis Comments MULTIPLE LABS Routine 09/14/2024 8:55 AM EST LIPID PROFILE Routine 09/14/2024 documented in this encounter Results * Multiple labs (09/14/2024 8:55 AM EST) us Scanning Provider External RI IMAGING Final Result MANUALLY TRANSCRIBED RESULTS * Lipid profile (09/14/2024) External Cholesterol 151 MANUALLY TRANSCRIBED RESULTS External Hdl Cholesterol 70 MANUALLY TRANSCRIBED RESULTS External Ldl (Calc) 54 MANUALLY TRANSCRIBED RESULTS External Triglycerides 134 MANUALLY TRANSCRIBED RESULTS 09/14/2024 us Scanning Provider External LAB BLOOD ORDERABLES Edited Result - Final MANUALLY TRANSCRIBED RESULTS documented in this encounter Visit Diagnoses Not on filedocumented in this encounter Care Teams Senior Cyber Intelligence Analyst Relationship Specialty Start Date End Date Elton Wilson Jr., [address] [place] [address] PCP - General Internal Medicine 09/26/17 documented as of this encounter
--- OUTSIDE RECORDS SUMMARY | 2025-06-05 08:57 | XMS_ITS | Encounter Summary ---
Demographics Address [address] [place] [address] Mobile Phone Email Address Preferred Language Nauruan Marital Status Significant Other Rastafari Affiliation Unknown Race White Ethnic Group Not or Lati no Author Organization [facility] Address [id number] [address] [place] [address] Care Team Providers Care Management Specialist Name Role Phone Katie Galdamez DO, Charles L Primary Care Provider Encounter Details Date Type Department Care Team (Late st Contact Info) Description 11/11/2021 [facility]phone [facility] [address] [place] [phone] Winter Cardenas, GIOVANNI Social History Tobacco Use Types Packs/Day [...] encounter Miscellaneous Notes * Telephone Encounter - Winter Cardenas RN - 11/11/2021 10:01 AM EST Received p/c from pt. Pt's been on Colchicine since 03/2021 for post op pericardial/ pleural effusions. Pt wants to know if needs to remain on colchicine. Pt states is having incisional discomfort butno SOB/pain with breathing. Will ask Dr. RIOS if pt can stop colchicine * Telephone Encounter - Chi Alegria MD - 11/11/2021 10:01 AM EST Yes, he can stop the colchicine. if he is on once a day he can just stop. If he is on twice a day go to once a day for a week and then stop * Telephone Encounter - Winter Cardenas RN - 11/11/2021 10:01 AM EST Instructions to pt * Telephone Encounter - MIGUEL Crawley - 11/11/2021 10:01 AM EST done documented in this encounter Plan of Treatment Upcoming Encounters Date Type Department Care Team (Late st Contact Info) Description 07/05/2025 1:30 PM EDT Appointment [facility] [address] [place] [address] Jessi Martinez DO [address] [facility] [address] [place] [address] 07/05/2025 2:15 PM EDT Appointment [facility] [address] [place] [address] Jessi Martinez, [address] [facility] [address] [place] [address] 07/05/2025 3:15 PM EDT Appointment [facility] [address] [place] [phone] Jessi Martinez, DO [address] [facility] [address] [place] [address] 07/05/2025 3:45 PM EDT Appointment [facility] [address] [place] [phone] Jessi Martinez, DO [address] [facility] [address] [place] [address] 07/15/2025 10:15 AM EDT Office Visit [facility] [address] [place] [address] Jessi Martinez, DO [address] [facility] [address] [place] [address] documented as of this encounter Visit Diagnoses Not on filedocumented in this encounter Care Teams Management Specialist Relationship Specialty Start Date End Date Elton Wilson Jr., [address] [place] [address] PCP - General Internal Medicine 09/26/17 documented as of this encounter
--- OUTSIDE RECORDS SUMMARY | 2025-06-05 08:57 | XMS_ITS | Encounter Summary ---
Demographics Address [address] [place] [address] Mobile Phone Email Address Preferred Language Haitian Marital Status Significant Other Muslim Affiliation Unknown Race White Ethnic Group Not or Lati no Author Organization [facility] Address [id number] [address] [place] [address] Care Team Providers Care Family Law Paralegal Name Role Phone Katie Galdamez DO, Charles L Primary Care Provider Reason for Visit * Reason Comments Med Refill Encounter Details Date Type Department Care Team (Late st Contact Info) Description 03/05/2023 Refill [facility] [address] [place] [phone] Adam Dasilva PA [address] [facility] 2[address] [place], [place] [phone] Spinal stenosis of lumbar region with neurogenic claudication Social History Tobacco Use Types Packs/Day Years [...] encounter Miscellaneous Notes * Telephone Encounter - Shireen Pathak RN - 03/05/2023 12:02 PM EDT Our clinic does not accept pharmacy refill requests. The patient must contact our office. [phone] documented in this encounter Plan of Treatment Upcoming Encounters Date Type Department Care Team (Late st Contact Info) Description 07/05/2025 1:30 PM EDT Appointment [facility] [address] [place] [address] Jessi Martinez, DO [address] [facility] [address] [place] [address] 07/05/2025 2:15 PM EDT Appointment [facility] [address] [place] [address] Jessi Martinez, DO [address] [facility] [address] [place] [address] 07/05/2025 3:15 PM EDT Appointment [facility] [address] [place] [address] Jessi Martinez, DO [address] [facility] [address] [place] [address] 07/05/2025 3:45 PM EDT Appointment [facility] [address] [place] [address] Jessi Martinez, DO [address] [facility] [address] [place] [address] 07/15/2025 10:15 AM EDT Office Visit [facility] [address] [place] [address] Jessi Martinez DO [address] [facility] [address] [place] [address] documented as of this encounter Goals Goal Patient Goal Type Associated Problems Recent Progress Patient-Stated? Author <enter goal here> General Yes Edgardo Wright, RN Note: Evaluation of progress towards goal: Patient will discharge to inpatient rehab. - Edgardo Wright RN 02/03/23 1:07 PM documented as of this encounter Visit Diagnoses Diagnosis Spinal stenosis of lumbar region with neurogenic claudication documented in this encounter Care Teams Family Law Paralegal Relationship Specialty Start Date End Date Elton Wilson Jr., DO [address] [place] [address] PCP - General Internal Medicine 09/26/17 documented as of this encounter
--- NOTE | 2025-06-05 09:42 | PM.CN ---
Consult Note: HPI Data of Consult Patient: known to practice within the last 3 years Consult date: 06/05/25 Requesting Physician: Jessy Estrada NP Primary Care Provider: BERINCE MICHELLE DO Family Provider: BERNICE MICHELLE DO Consult Narrative Reason for consult: low back, left leg pain Narrative: 74yom who presents for evaluation. longstanding history of low back, left leg pain. previously had lumbar fusion in 2022, initially did well, now worsening pain. engages in frequent weekly chiropractic therapy, with mild benefit. uses tylenol, motrin, gabapentin, but does not like taking meds. denies adverse med side effects. recently underwent lumbar MRI with results below cc:: CC: Jessy Estrada NP Review of Systems ROS Status of ROS 10 or more systems reviewed and unremarkable except as noted in history and below Meds Home Medications and Allergies Home Medications ?Medication ?Instructions ?Recorded ?Confirmed ?Type atenolol 25 mg tablet 25 mg PO DAILY 05/21/25 05/21/25 History atorvastatin 20 mg tablet 20 mg PO DAILY 05/21/25 05/21/25 History metoprolol tartrate 37.5 mg tablet 37.5 mg PO DAILY 05/21/25 05/21/25 History multivit,Ca,min-iron 8 mg-folic 1 tab PO DAILY 05/21/25 05/21/25 History acid 200 mcg-lycopene 600 mcg tablet (Men's Daily Multivitamin) vitamins A,C,S-zzrw-ntpacj 2,148 2 tab PO BID 05/21/25 05/21/25 History mcg-113 mg-45 mg-17.4 mg tablet (Eye Multivitamin) Allergies Allergy/AdvReac Type Severity Reaction Status Date / Time morphine Allergy Unconscious Verified 05/21/25 09:04 nitroglycerin Allergy Unconscious Verified 05/21/25 09:04 Exam Narrative Exam Narrative: Psych-alert and oriented x 3. Attentive and appropriate, constitutionally normal, displays normal mood and affect per situation. There are no obvious deficits in memory, reasoning, or intellect.? Skin-no obvious rashes, bruising, erythema noted to the patient's area of pain.? Extremities- extremities are warm with minimal edema and palpable pulses. Lumbar-tenderness to palpation noted in the lumbar spine and paraspinal musculature. Pain is elicited with flexion, extension, and lateral rotation of the lumbar spine. Range of motion is diminished with these motions. Facet loading maneuvers are positive.? Strength-noted to be unremarkable with the exception of decreased strength rated at 4 out of 5 in left quadriceps femoris, anterior tibialis. Sensory-no notable sensory deficits in the bilateral lower extremities to touch or pinprick in all dermatomal distributions with the exception to decreased sensation to the left L4, 5,S1 dermatomal distribution Coordination remains intact.? Gait remains non-antalgic. Results Imaging lumbar MRI: Attestation: I have reviewed the pertinent imaging results. Radiologist's impression: The bones of the lumbar spine are in anatomic alignment. There is preservation of vertebral body heights there is posterior and intervertebral fusion at L4-5. There is mild disc height loss at L5-S1. There is mild disc height loss at L5-S1. There is Schmorl's information the inferior endplate of L2. The marrow signal is within normal limits. The conus terminates at the mid L1 vertebral body level. No epidural or paraspinous fluid collection is appreciated. There is aneurysmal dilatation of the infrarenal abdominal aorta just above the bifurcation measuring up to 3.1 cm in greatest transverse dimension. At T12-L1: There is a normal disc, central canal, and neural foramen. At L1-L2: There is a normal disc, central canal, and neural foramen. At L2-L3: There is a broad-based disc bulge. There is facet hypertrophy with ligamentum flavum thickening. There is mild spinal canal stenosis with mild to moderate bilateral neural foraminal narrowing. At L3-L4: There is a circumferential disc bulge with facet hypertrophy and ligamentum flavum thickening. There is mild spinal canal stenosis with mild left and moderate right neural foraminal narrowing. At L4-L5: There is posterior and intervertebral fusion. There is facet hypertrophy. There is no significant spinal canal narrowing. There is moderate left and mild right neural foraminal narrowing. At L5-S1: There is a circumferential disc bulge with endplate osteophyte formation and facet hypertrophy. There is moderate left and severe right neural foraminal narrowing with mass effect on the exiting right L5 nerve roots. There is mild spinal canal narrowing. Assessment and Plan Assessment and Plan (1) Lumbar stenosis with neurogenic claudication: (2) Lumbar postlaminectomy syndrome: Plan The patient has had over 3 months of moderate to severe low back and LLE pain with functional impairment and inadequate response to conservative care including NSAIDS (unless there are contraindication such as concurrent blood thinners), multiple oral or topical pain medications, and home exercise program/physical therapy.? Patient has completed >6 weeks of guided home exercise program and/or formal physical therapy program without relief of their symptoms.? The Oswestry Disability Index was completed, and the patient scored a 58%.? left L4-5 L5-s1 TFESI under fluoroscopy refer back to Dr Bravo NS for evaluation continue HEP as tolerated, cannot tolerate PT due to pain dc motrin, start meloxicam 7.5mg bid prn pain. take with food f/u with pcp regarding gabapentin f/u 2 weeks after ELDER
== END 2025-06-05 08:55 | disposition home or self-care (01) ==
LOC: PM 08:54
PROVIDERS: Family Provider Internal Medicine; PCP Internal Medicine; Visit Provider Nurse Practitioner
DX: M48.062 Spinal stenosis, lumbar region with neurogenic claudication (principal); M96.1 Postlaminectomy syndrome, not elsewhere classified
CPT/HCPCS: G0463

== ENCOUNTER 2025-07-01 11:08 | Day surgery (SDC) | payer MEDICARE, SELFPAY ==
[2025-07-01 11:51] VITALS: BP 102/67; PULSE 74; TEMP 36.2; O2SAT 99
[2025-07-01 12:30] VITALS: BP 101/72; PULSE 76; O2SAT 98
[2025-07-01 12:31] VITALS: BP 118/68
[2025-07-01] MEDS: BUPIVACAINE HCL 0.25% PF 25 MG/10 ML VIAL INJ (12:32)
[2025-07-01] MEDS: 0.9 % SODIUM CHLORIDE 10 ML SYRINGE - SALINE FLUSH INJ (12:32)
[2025-07-01] MEDS: LIDOCAINE HCL 2% 400 MG/20 ML MDV INJ (12:33)
[2025-07-01] MEDS: IOHEXOL 240 MG/ML - 10 ML VIAL INJ (12:33)
[2025-07-01] MEDS: METHYLPREDNISOLONE ACETATE 80 MG/ML VIAL INJ (12:33)
--- NOTE | 2025-07-01 12:36 | P.ON_ITS ---
Date of procedure: 07/01/25 Pre-op diagnosis: Pain due to lumbar stenosis with neurogenic claudication Post-op diagnosis: same as pre-op Procedure: Procedure: Left L4-5, L5-S1 transforaminal epidural steroid injection Medications: Bupivacaine 0.25% 2cc, lidocaine 2% 1cc, depomedrol 80mg The patient was seen and examined in the preoperative holding area.? Informed consent was obtained and placed on the chart.? Patient was brought to the medical procedure unit and placed in the prone position where a timeout was completed verifying the correct patient, procedure site, position, and planned special equipment using sterile aseptic technique.? Under direct fluoroscopic visualization a 25-gauge Quincke tipped spinal needle was advanced to the designated neural foramen where contrast dye was injected to show adequate spread.? The needle was inserted at level left L4-5. There was no evidence of vascular or adverse uptake.? Epidural spread was appreciated.? The above- mentioned injectate was then placed in a 1.5 mL aliquot preceded by negative aspiration.? The needle was removed. The needle was inserted and the procedure repeated at level left L5-S1.? The surgery site was covered.? Patient was taken to the postprocedural recovery area and monitored for an appropriate length of time before found suitable for discharge in the accompaniment of a responsible adult. Anesthesia: Local Surgeon: Suzanne Zamorano Pathology: none sent Condition: stable Disposition: no change
== END 2025-07-01 12:43 | disposition home or self-care (01) ==
PROVIDERS: Family Provider Internal Medicine; PCP Internal Medicine; Visit Provider Anesthesiology
DX: M48.062 Spinal stenosis, lumbar region with neurogenic claudication (principal); M54.50 Low back pain, unspecified
CPT/HCPCS: 64483; 64484; J0665; J1010; Q9966

== ENCOUNTER 2025-07-11 07:50 | Outpatient (OUT) | payer MEDICARE, SELFPAY ==
--- NOTE | 2025-07-11 07:53 | PM.CN ---
Consult Note: HPI Data of Consult Patient: known to practice within the last 3 years Consult date: 07/11/25 Requesting Physician: Jessy Estrada NP Primary Care Provider: BERNICE MICHELLE DO Family Provider: BERNICE MICHELLE DO Consult Narrative Reason for consult: low back and RLE pain, Narrative: 74yom who presents for evaluation. longstanding history of low back, left leg pain. previously had lumbar fusion in 2022, initially did well, now worsening pain. engages in frequent weekly chiropractic therapy, with mild benefit. uses tylenol, motrin, gabapentin, hydrocodone. since last visit has noted severe RLE pain, numbness, tingling, weakness. status post left L4-5 L5-S1 TFESI with >50% improvement, overall 75-80%, in left sided symptoms. pt pending NS consultation 07/31/[address] Quintero. pt interested in surgical intervention due to severe pain and impairement in quality of life. cc:: CC: Jessy Estrada NP Review of Systems ROS Musculoskeletal Reports: back pain and extremity pain Meds Home Medications and Allergies Home Medications ?Medication ?Instructions ?Recorded ?Confirmed ?Type atenolol 25 mg tablet 25 mg PO DAILY 05/21/25 07/01/25 History atorvastatin 20 mg tablet 20 mg PO DAILY 05/21/25 07/01/25 History metoprolol tartrate 37.5 mg tablet 37.5 mg PO DAILY 05/21/25 07/01/25 History multivit,Ca,min-iron 8 mg-folic 1 tab PO DAILY 05/21/25 07/01/25 History acid 200 mcg-lycopene 600 mcg tablet (Men's Daily Multivitamin) vitamins A,C,M-jytk-pekfzi 2,148 2 tab PO BID 05/21/25 07/01/25 History mcg-113 mg-45 mg-17.4 mg tablet (Eye Multivitamin) acetaminophen 500 mg tablet 500 mg PO Q6H PRN pain 06/05/25 07/01/25 History (Tylenol Extra Strength) gabapentin 300 mg capsule 300 mg PO BID 06/05/25 07/01/25 History meloxicam 7.5 mg tablet 7.5 mg PO BIDWM 06/05/25 07/01/25 History hydrocodone 5 mg-acetaminophen 325 1 tab PO BID PRN pain #14 tabs 06/13/25 07/01/25 Rx mg tablet gabapentin 600 mg tablet 600 mg PO TID #90 tabs 07/04/25 Rx baclofen 10 mg tablet See Rx Instructions .Route 07/11/25 Rx .COMPLEX #60 tabs hydrocodone 5 mg-acetaminophen 325 See Rx Instructions .Route 07/11/25 Rx mg tablet .COMPLEX PRN pain #28 tabs Allergies Allergy/AdvReac Type Severity Reaction Status Date / Time morphine Allergy Unconscious Verified 07/01/25 11:52 nitroglycerin Allergy Unconscious Verified 07/01/25 11:52 Exam Constitutional Documenting provider has reviewed patient's vital signs: yes Common normals: no apparent distress, oriented x3, healthy appearing, alert and well nourished General appearance: cooperative HENMT Common normals: normocephalic, hearing grossly normal bilaterally and moist oral mucous membranes Head and scalp: normocephalic Eye Common normals: PERRL Pupil: PERRL Neck & C-Spine Common normals: full ROM General: normal visual inspection Chest Common normals: inspection of chest normal Respiratory Common normals: normal respiratory effort, no retractions and no use of accessory muscles Back & Pelvis Lumbar spine/lower back: ROM limited, pain with ROM and straight leg raise positive right Other: strength 3/5 in BLE decreased sensation right L4,5,S1 staggering gait, utilizing cane Neuro Common normals: oriented x3 Sensorium/orientation: alert Gait (neuro): antalgic and assistive device used cane Psych Common normals: mental status grossly normal, thought process normal, cooperative, affect normal, speech normal and activity/motor behavior normal Speech: normal speech Thought process: normal thought process Results Imaging lumbar MRI: Attestation: I have reviewed the pertinent imaging results. Radiologist's impression: The bones of the lumbar spine are in anatomic alignment. There is preservation of vertebral body heights there is posterior and intervertebral fusion at L4-5. There is mild disc height loss at L5-S1. There is mild disc height loss at L5-S1. There is Schmorl's information the inferior endplate of L2. The marrow signal is within normal limits. The conus terminates at the mid L1 vertebral body level. No epidural or paraspinous fluid collection is appreciated. There is aneurysmal dilatation of the infrarenal abdominal aorta just above the bifurcation measuring up to 3.1 cm in greatest transverse dimension. At T12-L1: There is a normal disc, central canal, and neural foramen. At L1-L2: There is a normal disc, central canal, and neural foramen. At L2-L3: There is a broad-based disc bulge. There is facet hypertrophy with ligamentum flavum thickening. There is mild spinal canal stenosis with mild to moderate bilateral neural foraminal narrowing. At L3-L4: There is a circumferential disc bulge with facet hypertrophy and ligamentum flavum thickening. There is mild spinal canal stenosis with mild left and moderate right neural foraminal narrowing. At L4-L5: There is posterior and intervertebral fusion. There is facet hypertrophy. There is no significant spinal canal narrowing. There is moderate left and mild right neural foraminal narrowing. At L5-S1: There is a circumferential disc bulge with endplate osteophyte formation and facet hypertrophy. There is moderate left and severe right neural foraminal narrowing with mass effect on the exiting right L5 nerve roots. There is mild spinal canal narrowing. Additional Findings Additional findings: If on a controlled substance or opioids, I have checked an OARRS report on this patient and there are no aberrancies noted in the prescribing history.??If on a controlled substance or opioid a drug screen was completed and reviewed within the last year, and if there has not been a drug screen completed we ordered one today to monitor higher risk, state monitored pain medication use. As part of providing excellent, safe, comprehensive care, the following was completed at our patient's visit: 1. A medication reconciliation and review to ensure accurate knowledge of current/active medications, including asking our patients to inform us about any ykzi-frq-zrlzmcu medications or herbal remedies/nutritional supplements/alternative remedies. 2. A review to specifically ensure our patients have had annual screening for screening for depression, screening for tobacco use, and screening for unhealthy alcohol use. For concerning screenings had a discussion with the patient, provided patient education, and recommended follow-up with primary care provider when appropriate. If patient noted with a risk of falling, they received education on strength, gait, and balance training to prevent future risk of falling. Portions of this note may have been carried over from the previous visit and updated as appropriate. Please note this office utilizes paper charting in addition to the electronic medical record. A list of current medications, vitals, and PMH is available there as the clinical staff outside of myself do not have access to [employer] charting during the clinic day operations. As part of providing quality comprehensive care the current medications, vitals, and PMH were reviewed in the paper chart. Assessment and Plan Assessment and Plan (1) Lumbar stenosis with neurogenic claudication: (2) Lumbar postlaminectomy syndrome: (3) Lumbar radiculopathy: Plan The patient has had over 3 months of moderate to severe low back and BLE pain with functional impairment and inadequate response to conservative care including NSAIDS (unless there are contraindication such as concurrent blood thinners), multiple oral or topical pain medications, and home exercise program/physical therapy.? Patient has completed >6 weeks of guided home exercise program and/or formal physical therapy program without relief of their symptoms.? The Oswestry Disability Index was completed, and the patient scored a 58%.? right L4-5 L5-s1 TFESI under fluoroscopy for right radiculopathy and lumbar stenosis with NC pending consultation with Dr Bravo NS for evaluation, pt interested in surgical intervention cannot tolerate PT or HEP due to pain extensive conversation with pt, , and daughter today regarding medication management and risks vs benefits. dc meloxicam due to ineffectiviness. continue gabapentin 600mg TID, does have mild BLE edema on exam. start baclofen 5-10mg bid prn pain/spasms. not to be taken at the same time of gabapentin and norco. increase hydrocodone-acetaminophen 5-325mg 1-2 tabs BID PRN moderate to severe pain. narcan prescribed. fortunately we will be able to proceed with right L4-5 L5-S1 TFESI tuesday advised to utilize wheeled walker over cane f/u 2 weeks after injection
== END 2025-07-11 07:51 | disposition home or self-care (01) ==
LOC: PM 07:50
PROVIDERS: Family Provider Internal Medicine; PCP Internal Medicine; Visit Provider Nurse Practitioner
DX: M48.062 Spinal stenosis, lumbar region with neurogenic claudication (principal); M96.1 Postlaminectomy syndrome, not elsewhere classified; M54.16 Radiculopathy, lumbar region
CPT/HCPCS: G0463

== ENCOUNTER 2025-07-15 12:07 | Day surgery (SDC) | payer MEDICARE, SELFPAY ==
[2025-07-15 12:38] VITALS: BP 101/65; PULSE 66; TEMP 36.1; O2SAT 97
[2025-07-15 13:08] VITALS: BP 101/62; PULSE 76; O2SAT 95
[2025-07-15] MEDS: IOHEXOL 240 MG/ML - 10 ML VIAL INJ (13:09)
[2025-07-15] MEDS: 0.9 % SODIUM CHLORIDE 10 ML SYRINGE - SALINE FLUSH INJ (13:09)
[2025-07-15] MEDS: BUPIVACAINE HCL 0.25% PF 25 MG/10 ML VIAL INJ (13:09)
[2025-07-15] MEDS: LIDOCAINE HCL 2% 400 MG/20 ML MDV INJ (13:10)
[2025-07-15] MEDS: METHYLPREDNISOLONE ACETATE 80 MG/ML VIAL INJ (13:10)
[2025-07-15 13:11] VITALS: BP 125/68; PULSE 66; O2SAT 95
--- NOTE | 2025-07-15 13:13 | P.ON_ITS ---
Date of procedure: 07/15/25 Pre-op diagnosis: Pain due to lumbar stenosis with neurogenic claudication Post-op diagnosis: same as pre-op Procedure: Procedure: Right L4-5, L5-S1 transforaminal epidural steroid injection Medications: Bupivacaine 0.25% 2cc, lidocaine 2% 1cc, depomedrol 80mg The patient was seen and examined in the preoperative holding area.? Informed consent was obtained and placed on the chart.? Patient was brought to the medical procedure unit and placed in the prone position where a timeout was completed verifying the correct patient, procedure site, position, and planned special equipment using sterile aseptic technique.? Under direct fluoroscopic visualization a 25-gauge Quincke tipped spinal needle was advanced to the designated neural foramen where contrast dye was injected to show adequate spread.? The needle was inserted at level right L4-5. There was no evidence of vascular or adverse uptake.? Epidural spread was appreciated.? The above- mentioned injectate was then placed in a 1.5 mL aliquot preceded by negative aspiration.? The needle was removed. The needle was inserted and the procedure repeated at level right L5-S1.? The surgery site was covered.? Patient was taken to the postprocedural recovery area and monitored for an appropriate length of time before found suitable for discharge in the accompaniment of a responsible adult. Anesthesia: Local Surgeon: Suzanne Zamorano Pathology: none sent Condition: stable Disposition: no change
== END 2025-07-15 13:31 | disposition home or self-care (01) ==
PROVIDERS: Family Provider Internal Medicine; PCP Internal Medicine; Visit Provider Anesthesiology
DX: M48.062 Spinal stenosis, lumbar region with neurogenic claudication (principal); M54.50 Low back pain, unspecified
CPT/HCPCS: 64483; 64484; J0665; J1010; Q9966

== ENCOUNTER 2025-07-25 09:09 | Outpatient (OUT) | payer MEDICARE, SELFPAY ==
--- OUTSIDE RECORDS SUMMARY | 2025-07-25 09:12 | XMS_ITS | Clinical Summary ---
Demographics Address [address] [place] [address] Mobile Phone Home Phone Email Address Preferred Language en Marital Status Single Moravian Affiliation Unknown Race White Ethnic Group Not or Lati no Author Organization [facility] Address [address] [place] [address] Care Team Providers Care Detail Drafter Name Role Phone Elton Wilson MD Primary Care Provider [phone] Social History Tobacco UseTypesPacks/DayYears UsedDateSmoking Tobacco: Never AssessedSex and Gender InformationValueDate RecordedSex Assigned at BirthNot on fileLegal Sex Male06/14/2025 8:54 AM EDTGender IdentityChoose not to bnidpyja13/29/2025 11:20 AM EDTSexual OrientationChoose not to fxyfdsnc32/29/2025 11:20 AM EDT Plan of Treatment DateTypeDepartmentCare Team (Latest Contact Info)Oedvjsgdgcg89/05/2025 12:20 PM ESTOffice Visit [facility] [address] [place] [address] Andrew Bravo MD [address] [place] [address] Health MaintenanceDue DateLast DoneCommentsCT Gbxacmbkxxnz21/03/1951Colonoscopy 1950olorectal Cancer Sroklgxyi58/03/1951FIT-DNA1950FIT1950 FOBT1950Medicare Annual Wellness (AWV)1950 6579Oblgofaexkbou18/03/1951 Depression Pqukrjijz60/03/1963Fall Risk Kqsvljfzr06/03/2016Adult Tetanus /05/2015COVID-19 Vaccine ( season)/05/2023, 07/01/2021, 11/14/2020, Additional history existsInfluenza Vaccine (#1) 512/, 07/04/2023, 08/31/2022, Additional history existsZoster KyjwpnukQcryeytpp88/18/2018, 01/10/2018Pneumococcal Vaccine: 50+ YearsCompleted 05/29/2021, 11/17/2016HIB VaccinesAged OutNo longer eligible based on patient's age to complete this topicHPV VaccinesAged OutNo longer eligible based on patient's age to complete this topicIPV VaccinesAged OutNo longer eligible based on patient's age to complete this topicMeningococcal B VaccineAged OutNo longer eligible based on patient's age to complete this topicMeningococcal VaccineAged OutNo longer eligible based on patient's age to complete this topicRotavirus VaccinesAged OutNo longer eligible based on patient's age to complete this topic Insurance * Guarantor: Saurabh Jerome AAccount TypeRelation to PatientDate of BirthPhone Billing AddressPersonal/DmgpmtQjfc38/03/1951 [address] [place] [address] Care Teams Team MemberRelationshipSpecialtyStart DateEnd Date Elton Wilson MD [address] [place] [address] [place] [address] PCP - GeneralInternal Medicine06/24/25
--- NOTE | 2025-07-25 09:51 | PM.CN ---
Consult Note: HPI Data of Consult Patient: known to practice within the last 3 years Consult date: 07/25/25 Requesting Physician: Jessy Estrada NP Primary Care Provider: BERNICE MICHELLE DO Family Provider: BERNICE MICHELLE DO Consult Narrative Reason for consult: low back and BLE pain Narrative: 74yom who presents for evaluation. longstanding history of low back, left leg pain. previously had lumbar fusion in 2022, initially did well, now worsening pain. uses tylenol, motrin, gabapentin, hydrocodone with no relief per pt. pain 10/10 at all times. pt noting signifcant short term relief from left L4-5 L5-S1 TFESI, >50% improvement for 10 days. underwent right L4-5 L5-S1 TFESI on 07/15/25 with >50% improvement for 1 day, no ongoing relief. pt miserable. he did trial hydrocodone-acetaminophen 2 tablets of 5-325mg without relief, denies side effects. pending NS consult next week 07/31/[address] Hicks. cc:: CC: Jessy Estrada NP Review of Systems ROS Musculoskeletal Reports: back pain and extremity pain Meds Home Medications and Allergies Home Medications ?Medication ?Instructions ?Recorded ?Confirmed ?Type atenolol 25 mg tablet 25 mg PO DAILY 05/21/25 07/15/25 History atorvastatin 20 mg tablet 20 mg PO DAILY 05/21/25 07/15/25 History metoprolol tartrate 37.5 mg tablet 37.5 mg PO DAILY 05/21/25 07/15/25 History multivit,Ca,min-iron 8 mg-folic 1 tab PO DAILY 05/21/25 07/15/25 History acid 200 mcg-lycopene 600 mcg tablet (Men's Daily Multivitamin) vitamins A,C,X-wroy-ptvpei 2,148 2 tab PO BID 05/21/25 07/15/25 History mcg-113 mg-45 mg-17.4 mg tablet (Eye Multivitamin) acetaminophen 500 mg tablet 500 mg PO Q6H PRN pain 06/05/25 07/15/25 History (Tylenol Extra Strength) gabapentin 300 mg capsule 300 mg PO BID 06/05/25 07/15/25 History meloxicam 7.5 mg tablet 7.5 mg PO BIDWM 06/05/25 07/15/25 History gabapentin 600 mg tablet 600 mg PO TID #90 tabs 07/04/25 07/15/25 Rx baclofen 10 mg tablet See Rx Instructions .Route 07/11/25 07/15/25 Rx .COMPLEX #60 tabs hydrocodone 5 mg-acetaminophen 325 See Rx Instructions .Route 07/11/25 07/15/25 Rx mg tablet .COMPLEX PRN pain #28 tabs Allergies Allergy/AdvReac Type Severity Reaction Status Date / Time morphine Allergy Unconscious Verified 07/15/25 12:42 nitroglycerin Allergy Unconscious Verified 07/15/25 12:42 Exam Constitutional Documenting provider has reviewed patient's vital signs: yes Common normals: no apparent distress, oriented x3, healthy appearing, alert and well nourished General appearance: cooperative HENMT Common normals: normocephalic, hearing grossly normal bilaterally and moist oral mucous membranes Head and scalp: normocephalic Eye Common normals: PERRL Pupil: PERRL Neck & C-Spine Common normals: full ROM General: normal visual inspection Chest Common normals: inspection of chest normal Respiratory Common normals: normal respiratory effort, no retractions and no use of accessory muscles Back & Pelvis Lumbar spine/lower back: ROM limited, pain with ROM, lumbar spinal tenderness, straight leg raise positive right and straight leg raise positive left Other: strength 3/5 in BLE staggering gait, utilizing cane Neuro Common normals: oriented x3 Sensorium/orientation: alert Gait (neuro): antalgic and assistive device used cane Psych Common normals: mental status grossly normal, thought process normal, cooperative, affect normal, speech normal and activity/motor behavior normal Speech: normal speech Thought process: normal thought process Results Imaging lumbar MRI: Attestation: I have reviewed the pertinent imaging results. Radiologist's impression: The bones of the lumbar spine are in anatomic alignment. There is preservation of vertebral body heights there is posterior and intervertebral fusion at L4-5. There is mild disc height loss at L5-S1. There is mild disc height loss at L5-S1. There is Schmorl's information the inferior endplate of L2. The marrow signal is within normal limits. The conus terminates at the mid L1 vertebral body level. No epidural or paraspinous fluid collection is appreciated. There is aneurysmal dilatation of the infrarenal abdominal aorta just above the bifurcation measuring up to 3.1 cm in greatest transverse dimension. At T12-L1: There is a normal disc, central canal, and neural foramen. At L1-L2: There is a normal disc, central canal, and neural foramen. At L2-L3: There is a broad-based disc bulge. There is facet hypertrophy with ligamentum flavum thickening. There is mild spinal canal stenosis with mild to moderate bilateral neural foraminal narrowing. At L3-L4: There is a circumferential disc bulge with facet hypertrophy and ligamentum flavum thickening. There is mild spinal canal stenosis with mild left and moderate right neural foraminal narrowing. At L4-L5: There is posterior and intervertebral fusion. There is facet hypertrophy. There is no significant spinal canal narrowing. There is moderate left and mild right neural foraminal narrowing. At L5-S1: There is a circumferential disc bulge with endplate osteophyte formation and facet hypertrophy. There is moderate left and severe right neural foraminal narrowing with mass effect on the exiting right L5 nerve roots. There is mild spinal canal narrowing. Additional Findings Additional findings: If on a controlled substance or opioids, I have checked an [place]ARRS report on this patient and there are no aberrancies noted in the prescribing history.??If on a controlled substance or opioid a drug screen was completed and reviewed within the last year, and if there has not been a drug screen completed we ordered one today to monitor higher risk, state monitored pain medication use. As part of providing excellent, safe, comprehensive care, the following was completed at our patient's visit: 1. A medication reconciliation and review to ensure accurate knowledge of current/active medications, including asking our patients to inform us about any rrkr-evo-pqmqfwm medications or herbal remedies/nutritional supplements/alternative remedies. 2. A review to specifically ensure our patients have had annual screening for screening for depression, screening for tobacco use, and screening for unhealthy alcohol use. For concerning screenings had a discussion with the patient, provided patient education, and recommended follow-up with primary care provider when appropriate. If patient noted with a risk of falling, they received education on strength, gait, and balance training to prevent future risk of falling. Portions of this note may have been carried over from the previous visit and updated as appropriate. Please note this office utilizes paper charting in addition to the electronic medical record. A list of current medications, vitals, and PMH is available there as the clinical staff outside of myself do not have access to [employer] charting during the clinic day operations. As part of providing quality comprehensive care the current medications, vitals, and PMH were reviewed in the paper chart. Assessment and Plan Assessment and Plan (1) Lumbar stenosis with neurogenic claudication: (2) Lumbar postlaminectomy syndrome: (3) Lumbar radiculopathy: Plan The patient has had over 3 months of moderate to severe low back and BLE pain with functional impairment and inadequate response to conservative care including NSAIDS (unless there are contraindication such as concurrent blood thinners), multiple oral or topical pain medications, and home exercise program/physical therapy.? Patient has completed >6 weeks of guided home exercise program and/or formal physical therapy program without relief of their symptoms.? The Oswestry Disability Index was completed, and the patient scored a 66%.?worsening pending consultation with Dr Bravo NS for evaluation, pt interested in surgical intervention cannot tolerate PT or HEP due to pain extensive conversation with pt today regarding medication management and risks vs benefits. decrease gabapentin 600mg BID. start baclofen 5-10mg bid prn pain/spasms. not to be taken at the same time as oxycodone. start oxycodone-acetaminophen 7.5-325mg TID PRN moderate to severe pain. narcan prescribed. encouraged wheeled walker, has rollator at home f/u 1 week for nurse consult to evaluate medication regimen
== END 2025-07-25 09:10 | disposition home or self-care (01) ==
LOC: PM 09:10
PROVIDERS: Family Provider Internal Medicine; PCP Internal Medicine; Visit Provider Nurse Practitioner
DX: M48.062 Spinal stenosis, lumbar region with neurogenic claudication (principal); M96.1 Postlaminectomy syndrome, not elsewhere classified; M54.16 Radiculopathy, lumbar region
CPT/HCPCS: G0463